=== PATIENT | female | born 1970 | race Caucasian/White ===

== ENCOUNTER 2023-01-09 15:05 | Outpatient (AMB) | payer BC, SELFPAY ==
--- NOTE | 2023-01-09 15:57 | A.SPINEOV_ITS ---
Intake Intake Visit Reasons: Burning sensation mid back Intake Note: Mrs. Coburn is here today c/o a burning sensation in her mid back. Surface To Air Weapons Officer Required: No Assessment & Plan Assessment & Plan (1) Back pain: Code(s): M54.9 - Dorsalgia, unspecified (2) Spondylolisthesis, lumbar region: Code(s): M43.16 - Spondylolisthesis, lumbar region Plan Mrs Coburn is here in follow up today , she is just under a year out from a L4- S1 interbody fusion. Her back is recovered for the most part and she has returned to a lot of her normal activities but is still feeling stiffness in her lower back at night. She also has been getting pain in her midthoracic region more on the left side. Does bother her if she takes a deep breath. I reviewed her x-rays with her today and they look excellent. Her alignment is almost perfectly anatomic. The hardware is in good position. The thoracic x-rays shows some mild degeneration in the midthoracic regions but nothing significant his standing out to me. There is no formal read back yet on these. I encouraged her to continue to be active but to avoid heavy lifting and bending. She will follow-up with us down the road if she has any further issues. Total amount of time spent in this visit was 20 minutes in discussion of sym ptoms, thoracic and lumbar x-ray imaging results and subsequent plan of care Jh Boyd MD,PhD [facility] Orders: Orders XR thoracic spine 2V Today M54.9 - Dorsalgia, unspecified XR lumbar spine 4V min Today M43.16 - Spondylolisthesis, lumbar region Coding Level of Care Code Est Pt Level 3 (73914) Diagnoses Back pain M54.9 Spondylolisthesis, lumbar region M43.16
== END 2023-01-09 16:13 | disposition home or self-care (01) ==
PROVIDERS: PCP Student in an Organized Health Care Education/Training Program; Visit Provider Physician Assistant
DX: M54.9 Dorsalgia, unspecified (principal); M43.16 Spondylolisthesis, lumbar region
CPT/HCPCS: 99213

== ENCOUNTER 2023-01-09 15:05 | Outpatient (REF) | payer BC, SELFPAY ==
--- NOTE | ~2023-01-09 | XR_ITS ---
EXAMINATION: XR THORACOLUMBAR SPINE CLINICAL INFORMATION: Pain COMPARISON: None available. TECHNIQUE: AP and lateral views of thoracic spine FINDINGS: The vertebral alignment is normal. No intrinsic bony abnormality. The disc heights and neural foramina are well maintained. The endplates and posterior elements are normal. No fracture or subluxation. The surrounding prevertebral soft tissues are unremarkable. XR/XR thoracic spine 2V IMPRESSION: No compression fractures or subluxations are identified. The disc spaces are preserved. No endplate changes are seen. The prevertebral soft tissues are normal. The foramina are patent.
--- NOTE | ~2023-01-09 | XR_ITS ---
EXAMINATION: XR LUMBOSACRAL SPINE WITH OBLIQUES CLINICAL INFORMATION: Spondylolisthesis and lumbar region COMPARISON: None available. TECHNIQUE: AP, flexion and extension lateral and lateral views of the lumbar spine. FINDINGS: Patient is status post L4-S1 pedicle screws placement and positioning of spacers at the level of L4-L5 and L5-S1. Hardware in good position and there is no instability seen on flexion and extension views. The rest of vertebral bodies are well aligned and intervertebral discs are preserved except of narrowing cough L1-L2. Soft tissues unremarkable. XR/XR lumbar spine 4V min IMPRESSION: Postsurgical changes with hardware in good position and no instability seen on flexion and extension views.
== END 2023-01-09 15:06 | disposition home or self-care (01) ==
LOC: HO.HOSX 15:05
PROVIDERS: PCP Student in an Organized Health Care Education/Training Program; Visit Provider Physician Assistant
DX: M54.9 Dorsalgia, unspecified (principal); M43.16 Spondylolisthesis, lumbar region
CPT/HCPCS: 72070; 72110

== ENCOUNTER 2023-09-28 13:40 | Outpatient (AMB) | payer BC, SELFPAY ==
--- NOTE | 2023-09-28 13:44 | A.SPINEOV_ITS ---
Intake Visit Reasons: back pain Intake Note: Ms. Coburn is here today c/o back pain that radiates down both legs. Customs Agent Required: No Assessment & Plan Assessment & Plan (1) Left hip pain: Code(s): M25.552 - Pain in left hip Category: Medical (2) Back pain: Code(s): M54.9 - Dorsalgia, unspecified Category: Medical (3) Spondylolisthesis, lumbar region: Code(s): M43.16 - Spondylolisthesis, lumbar region Category: Medical Plan Mrs Coburn is returning to the office today to see us. She has about a year and a half out from her L4-S1 anterior/oblique lumbar interbody fusion. Recently for probably the last month or so she has been having radicular pain down her left leg which is very similar to the severe right leg pain that she had before surgery. She has also been having left hip pain. She is continued to be active and is putting effort in to try to make sure that she keeps herself in shape. These things have helped her quality of life significantly. The recent hip pain and left leg pain though has given her some anxiety because it is so similar to what she had preoperatively. She still has some back pain as well. She was also having trouble with her right foot. She did end up going to a professional engineer who did a release of what sounds like the plantar fascia on her foot. That did improve some of her heel and foot pain but she is still continuing to have some discomfort on the right foot as well. On my examination today, I was unable to reproduce the pain with SI joint provocative maneuvers. Her strength and reflexes are normal. I am going to send her for standing flexion-extension x-rays of her lumbar spine, and left hip x-rays. I would also like to obtain a lumbar MRI to rule out a disc herniation above her previous surgical site. I will see her back after the tests are completed. Total amount of time spent in this visit was 20 minutes in discussion of symptoms, order imaging and subsequent plan of care Jh Boyd MD,PhD [facility] Orders: Orders XR lumbar spine 4V min Today M54.9 - Dorsalgia, unspecified XR hip LT min 2V Today M25.552 - Pain in left hip MR lumbar spine wo con Today M43.16 - Spondylolisthesis, lumbar region, M54.9 - Dorsalgia, unspecified Coding Level of Care Code Est Pt Level 3 (37791) Diagnoses Left hip pain M25.552 Back pain M54.9 Spondylolisthesis, lumbar region M43.16
== END 2023-09-28 14:11 | disposition home or self-care (01) ==
PROVIDERS: PCP Student in an Organized Health Care Education/Training Program; Visit Provider Physician Assistant
DX: M25.552 Pain in left hip (principal); M54.9 Dorsalgia, unspecified; M43.16 Spondylolisthesis, lumbar region
CPT/HCPCS: 99213

== ENCOUNTER 2023-09-28 13:40 | Outpatient (REF) | payer BC, SELFPAY ==
--- NOTE | ~2023-09-28 | XR_ITS ---
EXAMINATION: XR LUMBOSACRAL SPINE WITH OBLIQUES CLINICAL INFORMATION: Dorsalgia COMPARISON: 01/09/2023 TECHNIQUE: AP, both oblique, and lateral views of the lumbar spine. Lateral view of the lumbosacral junction and flexion and extension views. FINDINGS: Patient is status post fusion at the level of L4-L5, L5-S1 with parallel screws is an vertical rods in stable position and there are spacers in this same position as on the prior study, at the level of L4-L5 and L5-S1. There is mild instability on flexion view at the level of L1-L2 with exaggerated anterior listhesis. XR/XR lumbar spine 4V min IMPRESSION: Exaggeration of anterior listhesis at the level of L4-L5 on flexion view. Well-positioned hardware
--- NOTE | ~2023-09-28 | XR_ITS ---
EXAMINATION: XR HIP, LEFT CLINICAL INFORMATION: Pain in the left hip COMPARISON: X-rays of lumbar sacral spine performed same day. TECHNIQUE: Two views of the left hip. FINDINGS: No fracture. Alignment is anatomic. Hip joint space is maintained. Soft tissues are unremarkable. Incidental note made of postsurgical changes in the lumbar sacral junction with posterior instrumentation and disc spacer XR/XR hip LT min 2V IMPRESSION: 1. Normal left hip. 2. Postsurgical changes in the lumbar sacral junction more completely evaluated on x-rays lumbar sacral spine performed same day.
== END 2023-09-28 13:41 | disposition home or self-care (01) ==
LOC: HO.HOSX 13:40
PROVIDERS: PCP Student in an Organized Health Care Education/Training Program; Visit Provider Physician Assistant
DX: M25.552 Pain in left hip (principal); Z98.1 Arthrodesis status; M43.16 Spondylolisthesis, lumbar region
CPT/HCPCS: 72110; 73502

== ENCOUNTER 2024-07-30 13:53 | Outpatient (AMB) | payer OTHER, SELFPAY ==
--- NOTE | 2024-07-30 14:02 | A.SPINEOV_ITS ---
Intake Visit Reasons: Back pain/ surgical discussion Intake Note: Ms. Coburn is here today to discuss surgery. Cafeteria Cook Required: No Assessment & Plan Assessment & Plan (1) Status post lumbar and lumbosacral fusion by anterior technique: Code(s): Z98.1 - Arthrodesis status Category: Surgical Plan: Dear colleague, On 07/30/2024, I saw Abbie Coburn for difficulty walking with the right foot. Patient underwent a lumbar fusion L4-S1 on 03/01/2022 to correct lumbar spondylolisthesis for back pain and pain radiating down her right leg. Preoperatively she already had plantar fasciitis, which was surgically treated postoperatively and to care of the pain on the bottom of her right foot. However, she has been unable to walk normally on her right foot she states that something is pulling at the bottom during the walking cycle. She was told to also see her neurosurgeon to make sure there is nothing wrong with the surgical construct. We reviewed the MRI of the lumbar spine in detail that shows no nerve root compression. A repeat dynamic x-ray today was compared to an x-ray of 09/28/2023 and shows no changes with intact hardware L4-S1 and a resolution of the spondylolisthesis. In conclusion, the patient's symptoms are not originating from the spine. Her history is suggestive for a local foot problem. I discharged her from further follow-up. I spent 30 minutes in his consult for history, review imaging and discussing plan of care. Vu Boyd MD, PhD Sp[facility] Trained Neurosurgeon Director, [facility] Orders: Orders XR lumbar spine 4V min Today Z98.1 - Arthrodesis status Coding Level of Care Code Est Pt Level 3 (33958) Diagnoses Status post lumbar and lumbosacral fusion by anterior technique Z98.1
--- OUTSIDE RECORDS SUMMARY | 2024-07-30 16:36 | XMS_ITS | Clinical Summary ---
[facility] [address] [place] [address] Care Team Providers Care Costing Manager Name Role Phone Darin Kay DO Primary Care Provider [phone] Allergies Active Allergy Reactions Criticality Noted Date Comments Azithromycin 08/02/2016 No reaction documented Hydromorphone 08/18/2022 Erythromycin 2016 Molds & Smuts Itching 04/11/2019 rhinitis Morphine 2016 Nitrofurantoin 2016 Medications Medication Sig Dispensed Refills Start Date End Date Status albuterol (PROVENTIL HFA;VENTOLIN HFA) 108 (90 Base) MCG/ACT inhaler Inhale 2 puffs into the lungs every 4 (four) hours as needed. 0 12/11/2014 Active etodolac (LODINE) 400 MG tablet TAKE 1 TABLET (400 MG TOTAL) BY MOUTH 2 TIMES A DAY 60 tablet 0 12/02/2021 Active acetaminophen (TYLENOL) 325 MG tablet Take 2 tablets (650 mg total) by mouth every 6 (six) hours as needed. 0 Active hydrOXYzine (ATARAX) 25 MG tablet Take 1 tablet (25 mg total) by mouth every night at bedtime as needed. for anxiety 0 06/26/2022 Active traZODone (DESYREL) 50 MG tablet Take 1 tablet (50 mg total) by mouth every night at bedtime. 0 07/12/2022 Active Active Problems Problem Noted Date Diagnosed Date Spinal stenosis of lumbar re gion with neurogenic claudication 12/08/2021 Degenerative disc disease, lumbar 12/08/2021 Spondylolisthesis of lumbar region 12/08/2021 Arthritis of right hip 12/08/2021 Lumbar radiculopathy 12/08/2021 Family History Medical History Relation Name Comments Scoliosis Brother Arthritis Father Diabetes Father Hyperlipidemia Father Rheumatologic disease Father Arthritis Mother Cancer Mother Hypertension Mother Rheumatologic disease Mother Scoliosis Mother Relation Name Status Comments Brother Father Mother Social History Tobacco Use Types Packs/Day Years Used Date Smoking Tobacco: Never Smokeless Tobacco: Never Tobacco Cessation:Counseling Given: Not Answered Alcohol Use Standard Drinks/Week Comments No 0 (1 standard drink = 0.6 oz pur e alcohol) Sex and Gender Information Value Date Recorded Sex Assigned at Female 10/07/2019 4:32 PM EDT Gender Identity Female 10/07/2019 4:32 PM EDT Sexual Orientation Not on file Job Start Date Occupation Industry Not on file Not on file Not on file Last Filed Vital Signs Vital Sign Reading Time Taken Comments Blood Pressure 115/55 08/25/2022 2:40 PM EDT Pulse 75 08/25/2022 2:40 PM EDT Temperature 36.1 ??C (97 ??F) 08/25/2022 2:40 PM EDT Respiratory Rate 11 08/25/2022 2:40 PM EDT Oxygen Saturation 99% 08/25/2022 2:40 PM EDT Inhaled Oxygen Concentration - - Weight 79.4 kg (175 lb) 08/25/2022 11:44 AM EDT Height 160 cm (5' 3 ) 08/25/2022 11:44 AM EDT Body Mass Index 31 08/25/2022 11:44 AM EDT Plan of Treatment Health Maintenance Due Date Last Done Comments Hepatitis B Vaccines (1 of 3 - 3-dose series) 1970 Hepatitis C Screening 1970 Depression Screening 1982 BMI Counseling 1988 Preventative Health Evaluation 1988 DTap / Tdap / Td (1 - Tdap) 1989 Cervical Cancer Screening (Pap Smear) 06/24/1991 Colon Cancer Screening (Colonoscopy) 06/24/2015 Breast Cancer Screening (Mammogram) 2020 Shingrix-Zoster Vaccine (1 o f 2) 2020 COVID-19 Vaccine ( - 2023-2 5 season) 2023 09/30/2021, 09/09/2021 Influenza Vaccine (#1) 2023 Pneumococcal Vaccine Aged Out No long er eligible based on patient's age to complete this topic RSV Ped < 20 months Aged Out No longe r eligible based on patient's age to complete this topic Care Teams Costing Manager Relationship Specialty Start Date End Date Darin Kay DO [address] [place] [address] TERESA Lorenzo PCP - General Family Medicine 11/02/21
--- OUTSIDE RECORDS SUMMARY | 2024-07-30 16:36 | XMS_ITS | Patient Health Record ---
Author Organization [facility] Address [address] [place] [address] Care Team Providers Care Lining Setter Name Role Phone MIKALA URBINA Unavailable [phone] ALLERGIES Allergen (clinical drug ingredient) Drug/Non Drug Allergy documented on EMR Reaction Allergy Type Onset Date Status Azithromycin Unknown Drug Allergy Acti ve hydromorphone Dilaudid Unknown Drug Allergy Act lisa nitrofurantoin, macrocrystals / nitrofurantoin, monohydrate Macrobid Unknown Drug Allergy Active morphine Morphine Unknown Drug Allergy Active REASON FOR REFERRAL No Information MEDICATIONS Medication SIG (Take, Route, Frequency, Duration) Notes Start Date End Date Status Tylenol 325 MG 1 tablet as needed O rally every 4 hrs Active Advil 200 MG 1 tablet with food o r milk as needed Orally Three times a day Active hydrOXYzine HCl 25 MG 1 tablet at bedtim e as needed Orally Once a day Active traZODone HCl 50 MG 1 tablet at bedtime as needed Orally Once a day Active Vitamin D 50 MCG (1999) 1 capsule Ora lly Once a day Active Vitamin B 12 250 MCG 2 lozenges Orally O nce a day Active Magnesium 250 MG 1 tablet with a meal Orally Once a day Active PROBLEMS Problem Type ICD Code Onset Dates Problem Status W/U Status Risk SNOMED Code Notes Problem Other obesity (E66.8) Active confirmed [id number] Problem BMI 32.0-32.9,adul t (Z68.32) Active confirmed [id number] PLAN OF TREATMENT No Information Insurance Providers Payer Name Payer Address Payer Phone Subscriber Number Group Number Insured Name Patient Relationship to Insured Coverage Start Date Coverage End Date [facility] [address] [place] [address] [phone] [id number] Abbie Cardoza Self - patient is the insured MEDICATIONS ADMINISTERED Medication Instructions Date of Administration Dosage Notes [facility] B12 INJECTION 05/23/2022 [id number] MEDICAL (GENERAL) HISTORY Medical History History ICD Code weight gain/loss arthritis Surgical History Surgery Date(Month/Year) spinal Fusion Feb 2022 gallbladder 2011 left ovary removal 2011 Hospitalization History Reason Date(Month/Year) pain, numbness on left side November 2021
--- OUTSIDE RECORDS SUMMARY | 2024-07-30 16:36 | XMS_ITS ---
Author Name [facility] Organization Unknown Encounters Encounter Type Encounter Reason Primary Diagnosis Location Date Ambulatory [facility] 08/23/2022 Care Team Organization Name Specialty Phone Email Start Date End [facility] 03/03/2024
--- OUTSIDE RECORDS SUMMARY | 2024-07-30 16:36 | XMS_ITS | Clinical Summary ---
Author Organization 175 [facility] Address [address] [place] [address] Phone Care Team Providers Care Freight Loader Name Role Phone Elsa Juarez MD Primary Care Provider Allergies Active Allergy Reactions Criticality Noted Date Comments Amoxicillin GI intolerance 04/11/2019 Azithromycin 08/02/2016 No reaction documented Erythromycin GI intolerance,Unknown 12/11/2014 Hydromorphone 04/13/2022 Mold Itching 04/11/2019 rhinitis Morphine Hives,Nausea And Vomiting,Rash Medium 12/11/2014 Nitrofurantoin 2016 Medications ketoconazole (NIZORAL) 2 % shampoo APPLY TO SCALP WHEN SHOWERING. LATHER FOR 5 MINS THEN RINSE Active estradioL (VIVELLE-DOT) 0.05 mg/24 hr 1 patch 2 (two) times a week. Active ibuprofen (ADVIL,MOTRIN) 200 mg tablet Take 1 tablet (200 mg total) by mouth every 6 (six) hours if needed. Active progesterone (PROMETRIUM) 200 mg capsule TAKE 1 CAPSULE BY MOUTH AT BEDTIME FOR 90 DAYS *NEED NEW INS* 02/19/20 24 Active albuterol HFA (PROAIR HFA ; PROVENTIL HFA ; VENTOLIN HFA) 90 mcg/actuation inhaler Inhale 2 puffs by mouth. 03/07/20 23 Active acetaminophen (TYLENOL) 500 mg tablet Take 1 tablet (500 mg total) by mouth if needed. Active Zepbound 5 mg/0.5 mL solution INJECT 0.5 ML (5 MG) UNDER THE SKIN ONCE WEEKLY (0.5ML= 50 UNITS) 2 mL 07/31/19 25 Active tirzepatide, weight loss, (Zepbound) 5 mg/0.5 mL solution Inject 5 mg under the skin every 7 (seven) days for 28 days. Dispense vials. Vial NDC not available in EHR. 2 mL 06/19/19 25 025 Discontinued Zepbound 5 mg/0.5 mL solution INJECT 0.5 ML (5 MG) UNDER THE SKIN ONCE WEEKLY (0.5ML= 50 UNITS) 2 mL 07/10/19 025 Discontinued Hospital, Clinic, or Other Facility Administered Medication Ordered Dose Route Frequency Start Date End Date Status perflutren lipid microsphere (DEFINITY) 1.3 mL in sodium chloride 0.9% 8.7 mL injection 10 mL IV Once in imaging 07/28/2024 07/28/2024 End ed Active Problems Problem Noted Date Diagnosed Date Other chest pain 07/18/2024 Assessment & Plan (07/18/2024 1:49 PM EDT): The patient came for evaluation due to episodes of chest pain. The description of the symptoms is consistent with atypical chest pain. The patient has the following risk factors for coronary artery disease: Obesity. Given the patient's age, gender, description of the symptoms, and risk factors for CAD, the patient has an increased risk for coronary artery disease. As such, will order a stress test for evaluation of the patient's chest pain. Will also order an echocardiogram to rule out any underlying structural heart disease. Orders: Transthoracic echocardiogram (TTE) complete with PRN contrast, bubble, strain, and 3D order panel; Future perflutren lipid microsphere (DEFINITY) 1.3 mL in sodium chloride 0.9% 8.7 mL injection Exercise stress test; Future Palpitations 07/14/2024 Assessment & Plan (07/18/2024 1:49 PM EDT): The patient states that she has been having episodes of palpitations for approximately 1 year. Interestingly, she underwent a Holter monitor in 2016 for evaluation of palpitations. At that time (in 2015) the Holter monitor did not show any arrhythmias but it did show episodes of sinus tachycardia. The patient states that her symptoms have been present for the past year. She describes episodes of palpitations almost every day. Her episodes of palpitations can last from several minutes up to several hours per episode. Her symptoms are more prominent with physical activity, with a longer walk/prolonged standing or when she is going from a sitting to a standing position. She denies any episodes of near syncope or syncope. Of note, the patient is on hormone therapy with progesterone and estradiol. She has been on this therapy for the past year. The patient denies any shortness of breath or lower extremity edema. Recent Holter monitoring done in June 2024 did not show any arrhythmias. It did show episodes of sinus tachycardia. Eventually, her Holter results from June 2024 are similar to her Holter results from 2016. In our office today, her EKG showed a mild sinus tachycardia with a heart rate of 105 bpm. During the physical examination, her heart rate was noted to improve to 90 bpm. The patient's tachycardia may be secondary to inappropriate sinus tachycardia. Nevertheless, we need to rule out reversible causes of sinus tachycardia. As such, we will proceed with laboratory testing with a CBC to rule out anemia. Will order a comprehensive metabolic panel to rule out any electrolyte disorders. Will also order a TSH level to rule out hyperthyroidism. Even though the patient is not having any shortness of breath or lower extremity edema, she is on hormone therapy and therefore we will order a D-dimer. On the other hand, given that her symptoms can also happen with physical activity, will order an exercise stress test to rule out any cardiac ischemia or exercise-induced arrhythmias. Finally, given that her symptoms are sometimes happening with longer walks/prolonged standing or when going from a sitting to a standing position, will order a tilt table to rule out POTS or orthostatic hypotension. In the meantime, the patient was instructed to hydrate appropriately. She tells me that she has not been drinking enough water after starting the Zepbound. She states that she feels dehydrated. I instructed the patient to start drinking 8 to 10 glasses of water every day. Orders: Comprehensive metabolic panel; Future CBC and differential; Future Thyroid stimulating hormone with reflex to free t4 and free t3; Future D-Dimer; Future Transthoracic echocardiogram (TTE) complete with PRN contrast, bubble, strain, and 3D order panel; Future perflutren lipid microsphere (DEFINITY) 1.3 mL in sodium chloride 0.9% 8.7 mL injection Exercise stress test; Future Tilt table; Future Class 1 obesity with body ma ss index (BMI) of 31.0 to 31.9 in adult 06/04/2024 Chronic pain syndrome 04/21/2024 History of lumbar fusion 04/21/2024 Obesity (BMI 30-39.9) 04/21/2024 Other insomnia 04/21/2024 Fibromyalgia 04/21/2024 Resolved Problems Problem Noted Date Diagnosed Date Resolved Date Near syncope 07/18/2024 07/18/2024 Encounters Date Type Department Care Team Description 07/28/2024 12:30 PM EDT Ancillary Procedure [facility] [address] [place] [phone] Palpitations; Other chest pain 07/24/2024 2:15 PM EDT Ancillary Procedure [facility] - [address] [place] [address] Palpitations; Other chest pain 07/21/2024 Telephone [facility] [address] [facility] [address] [place] [address] Opal Childress MD 07/18/2024 1:00 PM EDT Office Visit [facility] [address] [facility] [address] [place] [address] Opal Childress MD Palpitations (Primary Dx); Other chest pain; Obesity (BMI 30-39.9); Pre-diabetes; Tachycardia 07/08/[address] [phone] Elsa Juarez MD Referral 07/01/2024 Telephone [facility] [address] [facility] [address] [place] [address] Opal Childress MD Itchy skin 06/30/2024 10:30 AM EDT Ancillary Procedure [facility] [address] [facility] [address] [place] [phone] Obesity (BMI 30-39.9); Pre-diabetes; Tachycardia 06/10/2024 Telephone Bariatric Surgery [address] [phone] Josemanuel Richards MD Medication Problem (Mounjaro) 06/09/2024 Telephone Adult [address] [phone] Elsa Juarez MD Referral (EXTERNAL CARDIOLOGY ) 06/04/2024 1:30 PM EST Telemedicine Bariatric Surgery [address] [phone] Class 1 obesity with body mass index (BMI) of 31.0 to 31.9 in adult, unspecified obesity type, unspecified whether serious comorbidity present (Primary Dx) 05/30/2024 1:30 PM EST Office Visit Adult [address] [phone] Elsa Juarez MD Obesity (BMI 30-39.9) (Primary Dx); Pre-diabetes; Tachycardia 05/23/2024 Telephone Adult [address] [phone] Elsa Juarez MD Concerning Labs 05/23/2024 Telephone Bariatric Surgery [address] [phone] Josemanuel Richards MD Labs Only 05/20/2024 8:45 AM EST Office Visit Bariatric Surgery [address] [phone] Josemanuel Richards MD Class 1 obesity due to excess calories with body mass index (BMI) of 34.0 to 34.9 in adult, unspecified whether serious comorbidity present (Primary Dx) 05/20/2024 Telephone Bariatric Surgery - [address] [place] [address] Josemanuel Richards MD Medication Problem from Last 3 Months Surgical History Surgery Date Site/Laterality Comments CHOLECYSTECTOMY PROCEDURE:CHOLECYSTECTOMY SPINAL FUSION PROCEDURE:SPINAL FUSION LEFT OOPHORECTOMY PROCEDURE:LEFT OOPHORECTOMY BREAST LUMPECTOMY PROCEDURE:BREAST LUMPECTOMY;COMMENT:2 on right breast, 1 on left breast FOOT FASCIOTOMY 08/25/2022 Right PROCEDURE:FASCIOTOMY FOOT / TOE;COMMENT:Procedure: RIGHT FASCIOTOMY FOOT / TOE; Surgeon: Kaden Manning DPM; Location: [facility]; Service: Podiatry; Laterality: Right; OOPHORECTOMY 11/14/2014 Left PROCEDURE: HISTORICAL OOPHORECTOMY; COMMENT: teratoma CHOLECYSTECTOMY 11/14/2014 PROCEDURE: HISTORICAL CHOLECYSTECTOMY BREAST LUMPECTOMY L 2003,2006. R 2001 PROCEDURE: HISTORICAL BREAST LUMPECTOMY; COMMENT: normal OTHER SURGICAL HISTORY 03/01/2022 PROCEDURE: DC ARTHRODESIS POSTERIOR INTERBODY 1 NTRSP LUMBAR; COMMENT: L4-5, L5-S1 Dr. Deb MCNAMARA Medical History Medical History Date Comments Asthma DX:Asthma Rheumatoid arthritis (CMS/HC C V24, CMS/HCC V28) DX:Rheumatoid arthritis (HCC ) Fibromyalgia DX:Fibromyalgia Asthma DX:Asthma Degenerative disc disease, lumbar DX:Degenerative disc disease, lumbar; COMMENT: L4/L5 Fibromyalgia DX:Fibromyalgia Osteoarthritis 08/02/2016 DX:Osteoarthriti s Polycystic ovary syndrome 08/02/2016 DX:David ycystic ovary syndrome History of abnormal cervical Pap smear 08/02/2016 DX:History of abnormal cervical Pap smear; COMMENT: 02/2015 Family History Medical History Relation Name Comments Scoliosis Brother Arthritis Father hypercholestero lemia Diabetes Father Hyperlipidemia Father Rheumatologic disease Father Breast cancer Maternal Grandmother Arthritis Mother Breast cancer Mother polymyalgia rh eumatic arthritis Cancer Mother Hypertension Mother Rheumatologic disease Mother Scoliosis Mother Relation Name Status Comments Brother Father Maternal Grandmother Mother Social History Tobacco Use Types Packs/Day Years Used Date Smoking Tobacco: Never Smokeless Tobacco: Never Tobacco Cessation:Counseling Given: Not Answered Alcohol Use Standard Drinks/Week Comments No 0 (1 standard drink = 0.6 oz pur e alcohol) Comments No Sex and Gender Information Value Date Recorded Sex Assigned at Not on file Legal Sex Female 7:22 PM EST Gender Identity Not on file Sexual Orientation Not on file Obstetrics History Last Filed Vital Signs Vital Sign Reading Time Taken Comments Blood Pressure 100/70 07/28/2024 1:31 PM EDT Pulse 106 07/18/2024 12:49 PM EDT Temperature 36.1 ??C (97 ??F) 05/30/2024 1:32 PM EST Respiratory Rate 16 05/30/2024 1:32 PM EST Oxygen Saturation 98% 07/18/2024 12:49 PM EDT Inhaled Oxygen Concentration - - Weight 79.4 kg (175 lb) 07/28/2024 1:31 PM EDT Height 162.6 cm (5' 4 ) 07/28/2024 1:31 PM EDT Body Mass Index 30.04 07/28/2024 1:31 PM EDT Plan of Treatment Upcoming Encounters Date Type Department Care Team (Late st Contact Info) Description 09/18/2024 10:00 AM EDT Office Visit Bariatric Surgery [facility] [address] [phone] Josemanuel Richards MD [address] [address] 09/30/2024 1:45 PM EDT Appointment [facility] Xray [address] [place] [phone] 10/06/2024 9:00 AM EDT Office Visit Adult Medicine [address] [phone] Elsa Juarez MD [address] [place] [address] 12/23/2024 9:30 AM EDT Office Visit Adult Medicine [address] [phone] Elsa Juarez MD [address] [place] [address] Health Maintenance Due Date Last Done Comments DTaP,Tdap,and Td Vaccines (1 - Tdap) 1989 Hepatitis B Vaccines (1 of 3 - 19+ 3-dose series) 1989 Pneumococcal Vaccine: 50+ Years (1 of 2 - PCV) 1989 Pneumococcal Vaccine: Pediatrics (0 to 5 Years) and At-Risk Patients (6 to 64 Years) (1 of 2 - PCV) 1989 Zoster Vaccines (1 of 2) 1989 COVID-19 Vaccine (3 - Pfizer risk series) 10/28/2021 09/30/2021, 09/09/2021 Depression Screening 03/24/2022 HIV Screening 03/24/2022 Social Influencers of Health Screening 03/24/2022 Influenza Vaccine (Season Ended) 2024 Cervical Cancer Screening: P ap Smear 04/11/2025 04/11/2022 Breast Cancer Screening 07/01/2025 07/02/19 24, 02/15/2018 Colorectal Cancer Screening: FIT-DNA (Cologuard) 02/07/2026 02/07/2023 Cholesterol Screening (Lipid Panel) 05/20/2029 05/20/2024, 07/24/2023, 12/02/2021 Hepatitis C Screening Completed 07/24/2023 HIB Vaccines Aged Out No longer eligi ble based on patient's age to complete this topic HPV Vaccines Aged Out No longer eligi ble based on patient's age to complete this topic Hepatitis A Vaccines Aged Out No long er eligible based on patient's age to complete this topic IPV Vaccines Aged Out No longer eligi ble based on patient's age to complete this topic MMR Vaccines Aged Out No longer eligi ble based on patient's age to complete this topic Meningococcal ACWY Vaccine Aged Out N o longer eligible based on patient's age to complete this topic Meningococcal B Vaccine Aged Out No l onger eligible based on patient's age to complete this topic RSV Immunization Patients Under 20 months Aged Out No longer eligible b ased on patient's age to complete this topic Varicella Vaccines Aged Out No longer eligible based on patient's age to complete this topic Procedures Procedure Name Priority Date/Time Associated Diagnosis Comments STRESS TEST ONLY EXERCISE Routine 07/24/2024 3:30 PM EDT Palpitations Other chest pain Procedure Note - Renae Trevino, CODY / Opal Childress MD - 07/24/2024 3:30 PM EDTThis note is in progress. ? ? Stress ECG was normal. ? ? Exercise stress test was performed. Exercise capacity was average.Normal blood pressure response. Findings Stress Findings A Reilly protocol stress test was performed. Overall, the patient's exercise capacity was average. The patient reached stage 3. Total stress time was 7 min and 5 sec. The test was stopped because the patient experienced shortness of breath. The patient achieved the target heart rate. The patient's hemodynamic response was adequate for diagnosis. Blood pressure demonstrated a normal response. Heart rate demonstrated a normal response. Onset of symptoms occurred at Stage 3 of the protocol. The patient reported shortness of breath during the stress test. ECG 54-year-old female with past medical history of asthma, fibromyalgia, obesity, palpitations who presents today for exercise stress test to rule out ischemia in the setting of complaints of palpitations with associated lightheadedness and chest discomfort. She is not on any beta-blockers or calcium channel blockers. The ECG shows normal sinus rhythm 95 bpm There were no arrhythmias during stress. There is no significant ST abnormalities during stress. There were no arrhythmias during recovery. The result of the stress ECG was negative for ischemia. CBC WITH AUTO DIFFERENTIAL Routine 07/18/2024 1:47 PM EDT Palpitations D-DIMER Routine 07/18/2024 1:47 PM EDT Palpitations THYROID STIMULATING HORMONE WITH REFLEX TO FREE T4 AND FREE T3 Routine 07/18/2024 1:47 PM EDT Palpitations CBC AND DIFFERENTIAL Routine 07/18/2024 1:47 PM EDT Palpitations COMPREHENSIVE METABOLIC PANEL Routine 07/18/2024 1:47 PM EDT Palpitations ECG 12-LEAD Routine 07/18/2024 1:00 PM EDT Tachycardia CARDIAC HOLTER MONITOR (REPORT GENERATED IN HOUSE) Routine 06/30/2024 10:28 AM EDT Obesity (BMI 30-39.9) Pre-diabetes Tachycardia HEPATIC FUNCTION PANEL Routine 05/20/2024 9:22 AM EST Class 1 obesity due to excess calories with body mass index (BMI) of 34.0 to 34.9 in adult, unspecified whether serious comorbidity present LIPID PANEL WITH REFLEX TO DIRECT LDL Routine 05/20/2024 9:22 AM EST Class 1 obesity due to excess calories with body mass index (BMI) of 34.0 to 34.9 in adult, unspecified whether serious comorbidity present HEMOGLOBIN A1C Routine 05/20/2024 9:22 AM EST Class 1 obesity due to excess calories with body mass index (BMI) of 34.0 to 34.9 in adult, unspecified whether serious comorbidity present HEPATITIS C SCREENING Routine 07/24/2023 MAMMOGRAPHY Routine 07/02/2023 FIT-DNA Routine 02/07/2023 PAP SMEAR Routine 04/11/2022 from Last 3 Months or Most Recently Relevant to Health Maintenance Results * Thyroid stimulating hormone with reflex to free t4 and free t3 (07/18/2024 1:47 PM EDT) Thyroid Stimulating Hormone (TSH) 2.300 0.450 - 4.500 uIU/mL [facility] 1 Blood Venous blood specimen / Unknown 07/18/2024 1:47 PM EDT 07/18/2024 Narrative [facility] 1 - 07/19/2024 6:07 AM EDT Performed at: ??01 - [facility] [address] ??[id number] Sand Buffer: America Cam MD, Phone: ??[phone] us Opal Childress MD LAB BLOOD ORDERABLES F inal Result [facility] * CBC auto differential (07/18/2024 1:47 PM EDT) WBC 9.2 3.4 - 10.8 x10E3/uL [facility] 1 RBC 4.72 3.77 - 5.28 x10E6/uL [facility] 1 Hemoglobin 14.5 11.1 - 15.9 g/dL [facility] 1 Hematocrit 43.9 34.0 - 46.6 % [facility] 1 MCV 93 79 - 97 fL [facility] 1 MCH 30.7 26.6 - 33.0 pg [facility] 1 MCHC 33.0 31.5 - 35.7 g/dL [facility] 1 RDW 13.0 11.7 - 15.4 % [facility] 1 Platelets 358 150 - 450 x10E3/uL [facility] 1 Neutrophils 68 Not Estab. % [facility] 1 Lymphocytes 25 Not Estab. % [facility] 1 Monocytes 6 Not Estab. % [facility] 1 Eosinophils 1 Not Estab. % [facility] 1 Basophils 0 Not Estab. % [facility] 1 Neutrophils Absolute 6.3 1.4 - 7.0 x10E3/uL [facility] 1 Lymphocytes Absolute 2.3 0.7 - 3.1 x10E3/uL [facility] 1 Monocytes Absolute 0.5 0.1 - 0.9 x10E3/uL [facility] 1 Eosinophils Absolute 0.1 0.0 - 0.4 x10E3/uL [facility] 1 Basophils Absolute 0.0 0.0 - 0.2 x10E3/uL [facility] 1 Immature Granulocytes Relative 0 Not Estab. % [facility] 1 Immature Grans (Abs) 0.0 0.0 - 0.1 x10E3/uL [facility] 1 Blood Venous blood specimen / Unknown 07/18/2024 1:47 PM EDT 07/18/2024 Narrative [facility] 1 - 07/19/2024 4:06 AM EDT Performed at: ??01 - [facility] [address] ??[id number] Sand Buffer: America Cam MD, Phone: ??[phone] us Opal Childress MD LAB BLOOD ORDERABLES F inal Result [facility] * D-Dimer (07/18/2024 1:47 PM EDT) Pathologist [facility] D-Dimer 0.39 0.00 - 0.49 mg/L FEU [facility] Comment: According to the assay hand driller's published package insert, a normal (<0.50 mg/L FEU) D-dimer result in conjunction with a non-high clinical probability assessment, excludes deep vein thrombosis (DVT) and pulmonary embolism (PE) with high sensitivity. D-dimer values increase with age and this can make VTE exclusion of an older population difficult. To address this, the [employer], based on best available evidence and recent guidelines, recommends that clinicians use age-adjusted D-dimer thresholds in patients greater than 50 years of age with: a) a low probability of PE who do not meet all Pulmonary Embolism Rule Out Criteria, or b) in those with intermediate probability of PE. The formula for an age-adjusted D-dimer cut-off is age/100 . For example, a 60 year old patient would have an age-adjusted cut-off of 0.60 mg/L FEU and an 80 year old 0.80 mg/L FEU. Blood Venous blood specimen / Unknown 07/18/2024 1:47 PM EDT 07/18/2024 Narrative [facility] 1 - 07/19/2024 3:07 PM EDT Performed at: ??01 - [facility] [address] ??[id number] Sand Buffer: America Cam MD, Phone: ??[phone] Opal Childress MD LAB BLOOD ORDERABLES F inal Result [facility] * (ABNORMAL) Comprehensive metabolic panel (07/18/2024 1:47 PM EDT) [facility] Glucose 82 70 - 99 mg/dL [facility] Blood Urea Nitrogen (BUN) 14 6 - 24 mg/dL [facility] Creatinine 0.87 0.57 - 1.00 mg/dL [facility] 1 eGFR 79 >59 mL/min/1. 73 [facility] 1 BUN/Creatinine Ratio 16 9 - 23 [facility] 1 Sodium 137 134 - 144 mmol/L [facility] Potassium 4.2 3.5 - 5.2 mmol/L [facility] 1 Chloride 101 96 - 106 mmol/L [facility] 1 Carbon Dioxide 21 20 - 29 mmol/L [facility] 1 Calcium 9.6 8.7 - 10.2 mg/dL [facility] Protein Total 7.4 6.0 - 8.5 g/dL [facility] 1 Albumin 4.5 3.8 - 4.9 g/dL [facility] 1 Globulin Total 2.9 1.5 - 4.5 g/dL [facility] 1 Bilirubin Total 0.2 0.0 - 1.2 mg/dL [facility] 1 Alkaline Phosphatase 104 44 - 121 IU/L [facility] 1 Aspartate aminotransferase??(A ST) 20 0 - 40 IU/L [facility] 1 Alanine Aminotransferase (ALT) 33(H) 0 - 32 IU/L [facility] 1 Blood Venous blood specimen / Unknown 07/18/2024 1:47 PM EDT 07/18/2024 Narrative [facility] 1 - 07/19/2024 4:06 AM EDT Performed at: ??01 - [facility] [address] ??[id number] Sand Buffer: America Cam MD, Phone: ??[phone] us Opal Childress MD LAB BLOOD ORDERABLES F inal Result [facility] * ECG 12 lead (07/18/2024 1:00 PM EDT) Ventricular Rate ECG 105 BPM GEMUSE Atrial Rate 105 BPM GEMUSE P-R Interval 120 ms GEMUSE QRS Duration 90 ms GEMUSE Q-T Interval 332 ms GEMUSE QTc 438 ms GEMUSE P Wave Laurel 84 degrees GEMUSE R [place]urel 90 degrees GEMUSE T [place] 32 degrees GEMUSE ECG Interpretation Sinus tachycardia Rightward axis Borderline ECG When compared with ECG of 02-MAR-2022 05:48, No significant change was found Confirmed by OPAL CHILDRESS ([id number]) on 07/18/2024 1:41:38 PM GEMUSE 07/18/2024 1:00 PM EDT 07/18/2024 1:41 PM EDT us Opal Childress MD ECG ORDERABLES Final Result GEMUSE * CARDIAC HOLTER MONITOR (REPORT GENERATED IN HOUSE) (06/30/2024 10:28 AM EDT) Anatomical Region Laterality Modality Cardiac Diagnost ic Narrative 07/03/2024 12:11 PM EDT ?Normal sinus rhythm with some periods of sinus tachycardia. ??No arrhythmias. [facility] [address] [place] [id number] TEL: FAX: Type of Test: 48 Hour Holter Monitor Date of Test: 06/30/2024 Ordering Provider: Elsa Juarez MD Reason for Test: Tachycardia PVCA Manager Community Findings: ?? 1: Normal Sinus Rhythm with episodes of Sinus Tachycardia. 2: Heart rate range was 64-164 BPM with an average of 92 BPM. Total time in Sinus Tachycardia: 10 hrs 42 mins. 3: Rare PACs and one atrial pair. Two PVCs. 4: No significant pause, longest R-R was 1.1 second at 8:47 AM. 5: Diary not returned. Impression: Normal sinus rhythm with periods of sinus tachycardia. ??No documented atrial or ventricular arrhythmias. ??No pauses or bradycardia. us Elsa Juarez MD [facility] CARDIAC SERVICES DC OCEDURES Final Result * (ABNORMAL) Lipid panel with reflex to direct LDL (05/20/2024 9:22 AM EST) Cholesterol 217(H) 0 - 200 mg/dL LAB CHEMISTRY METHOD 05/20/2024 3:39 PM EST [facility] Triglycerides 163(H) 0 - 150 mg/dL LAB CHEMISTRY METHOD 05/20/2024 3:39 PM EST [facility] HDL 57 >=40 mg/dL LAB CHEMISTRY METHOD 05/20/2024 3:39 PM [facility] LDL Calculated 127(H) 0 - 100 mg/dL LAB CHEMISTRY METHOD 05/20/2024 3:39 PM [facility] VLDL Cholesterol Wang 32.6 mg/dL LAB CHEMISTRY METHOD 05/20/2024 3:39 PM [facility] Non HDL Chol. (LDL+VLDL) 160(H) <145 mg/dL LAB CHEMISTRY METHOD 05/20/2024 3:39 PM [facility] Chol/HDL Ratio 3.8 0.0 - 4.4 LAB CHEMISTRY METHOD 05/20/2024 3:39 PM [facility] Blood Venous blood specimen / Unknown Venipuncture / Unknown 05/20/2024 9:22 AM EST 05/20/2024 9:22 AM EST us Josemanuel Richards MD LAB BLOOD ORDERABLES Final R esult [facility] [address] [place] [address], [place] [phone] * Hemoglobin A1c (05/20/2024 9:22 AM EST) Hemoglobin A1C 6.0 <6.5 % LAB CHEMISTRY METHOD 05/21/2024 10:33 AM EST [facility] Mean Bld Glu Estim. 126 mg/dL LAB CHEMISTRY METHOD 05/21/2024 10:33 AM EST [facility] Blood Venous blood specimen / Unknown Venipuncture / Unknown 05/20/2024 9:22 AM EST 05/20/2024 9:22 AM EST us Josemanuel Richards MD LAB BLOOD ORDERABLES Final R esult [facility] [address] [place] [address], [place] [phone] * Hepatic function panel (05/20/2024 9:22 AM EST) [facility] Total Protein 7.0 6.0 - 8.0 g/dL LAB CHEMISTRY METHOD 05/20/2024 3:39 PM EST [facility] Albumin 3.5 3.2 - 5.0 g/dL LAB CHEMISTRY METHOD 05/20/2024 3:39 PM EST [facility] Total Bilirubin 0.4 0.0 - 1.4 mg/dL LAB CHEMISTRY METHOD 05/20/2024 3:39 PM [facility] Bilirubin, Direct 0.1 0.0 - 0.3 mg/dL LAB CHEMISTRY METHOD 05/20/2024 3:39 PM [facility] Bilirubin, Indirect 0.3 0.0 - 1.1 mg/dL LAB CHEMISTRY METHOD 05/20/2024 3:39 PM EST [facility] ALT (SGPT) 52 10 - 60 unit/L LAB CHEMISTRY METHOD 05/20/2024 3:39 PM [facility] AST (SGOT) 25 10 - 42 unit/L LAB CHEMISTRY METHOD 05/20/2024 3:39 PM [facility] Alkaline Phosphatase 96 42 - 121 unit/L LAB CHEMISTRY METHOD 05/20/2024 3:39 PM [facility] Blood Venous blood specimen / Unknown Venipuncture / Unknown 05/20/2024 9:22 AM EST 05/20/2024 9:22 AM EST us Josemanuel Richards MD LAB BLOOD ORDERABLES Final R esult [facility] [address] [place] [address], [place] [phone] * Hepatitis C Screening (07/24/2023) [facility] Hepatitis C Screening Abstrated Historical Provider HEALTH MAINTENANCE Final Result * Mammography (07/02/2023) [facility] Mammogram abstract [facility]sr Anatomical Region Laterality Modality Other Historical Provider HEALTH MAINTENANCE Final Result * FIT-DNA (Cologuard) (02/07/2023) [facility] Colorectal Cancer Screening: FIT-DNA (Cologuard) Negative, Abstracted Historical Provider HEALTH MAINTENANCE Final Result * Pap Smear (04/11/2022) [facility] Pap smear No Interpretatio n, Abstrated Historical Provider HEALTH MAINTENANCE Final Result from Last 3 Months or Most Recently Relevant to Health Maintenance Insurance [employer] Care Teams Freight Loader Relationship Specialty Start Date End Date Elsa Juarez MD [address] [place] [address] [place] [address] PCP - General Internal Medicine 05/15/24
--- OUTSIDE RECORDS SUMMARY | 2024-07-30 16:36 | XMS_ITS | Clinical Summary ---
Author Organization [facility], Address [address] [place] [address] Phone Care Team Providers Care Bioprocessing Manufacturing Technician Name Role Phone Unavailable Primary Care Provider Unavailabl e Allergies Active Allergy Reactions Criticality Noted Date Comments Erythromycin 01/25/2022 Nitrofurantoin 01/25/2022 Morphine 01/25/2022 Medications Acetaminophen 500 MG capsule Take 500 mg by mouth every 6 (six) hours if needed for mild pain Active methocarbamol (ROBAXIN) 750 MG tablet Take 750 mg by mouth in the morning and 750 mg at noon and 750 mg in the evening and 750 mg before bedtime. Active norethindrone-e thinyl estradiol-danae us fumarate (LOESTIN 24 FE) 1-20 MG-MCG(24) per tablet Take 1 tablet by mouth 1 (one) time each day Active pregabalin (LYRICA) 75 MG capsule Take 75 mg by mouth in the morning and 75 mg in the evening. Active traMADol (ULTRAM) 50 MG tablet Take 50 mg by mouth every 6 (six) hours if needed for moderate pain Active Active Problems Problem Noted Date Diagnosed Date Fibromyalgia 01/25/2022 Degeneration of lumbar intervertebral disc 01/25 Social History Tobacco Use Types Packs/Day Years Used Date Smoking Tobacco: Never Assessed Tobacco Cessation:Counseling Given: Not Answered Comments Unknown Sex and Gender Information Value Date Recorded Sex Assigned at Not on file Legal Sex Female 10:07 AM EDT Gender Identity Not on file Sexual Orientation Not on file Last Filed Vital Signs Vital Sign Reading Time Taken Comments Blood Pressure 112/72 02/15/2022 11:09 AM EDT Pulse 80 02/15/2022 11:09 AM EDT Temperature 36.2 ??C (97.1 ??F) 02/15/2022 11:09 AM E DT Respiratory Rate - - Oxygen Saturation - - Inhaled Oxygen Concentration - - Weight - - Height - - Body Mass Index - - Plan of Treatment Health Maintenance Due Date Last Done Comments Breast Cancer Screening 1970 Hepatitis B Vaccine (1 of 3 - 19+ 3-dose series) 06/23 Colorectal Cancer Screening: Annual FOBT 06/24/2019 Colorectal Cancer Screening: Colonoscopy 06/24/2019 Colorectal Cancer Screening: Sigmoidoscopy 06/24/2019 Pneumococcal Vaccine: 50+ Years (1 of 1 - PCV) 021 Influenza Vaccine (Season Ended) 2024 Insurance [facility]
--- OUTSIDE RECORDS SUMMARY | 2024-07-30 16:36 | XMS_ITS | Encounter Summary ---
Author Organization [facility] [place] [address] Care Team Providers Care Plunger Shovel Operator Name Role Phone Elsa Juarez MD Primary Care Provider Reason for Visit * Reason Onset Date Comments Itchy skin 07/01/2024 Encounter Details Date Type Department Care Team (Late st Contact Info) Description 07/01/2024 Telephone [facility] Dr [address] [place] [address] Dave Ruiz MD [address] [place] [address] Dr [address] [place], [place] [phone] Itchy skin Social History Tobacco Use Types Packs/Day Years Used Date Smoking Tobacco: Never Smokeless Tobacco: Never Alcohol Use Standard Drinks/Week Comments No 0 (1 standard drink = 0.6 oz pur e alcohol) Comments No Sex and Gender Information Value Date Recorded Sex Assigned at Not on file Legal Sex Female 7:22 PM EST Gender Identity Not on file Sexual Orientation Not on file documented as of this encounter Progress Notes * Ruthie Kramer RN - 07/02/2024 10:43 AM EDT Noted the below. Thank you for the information. * Araceli Sun - 07/02/2024 10:16 AM EDT This message came to us after hours. Given we placed the monitor, we are the ones to advise on its use. I called and spoke with Abbie, she kept monitor electrodes with original stickers on, in spite of significant skin irritation. I advised patient that she had extra stickers she could have used, but pt was afraid to interrupt recording. Patient will be returning monitor today and was thankful for the call back. This is handled by monitoring pool. They advise patients to change the stickers to the 'sensitive' ones provided during appt, if the irritation persists, please notify Lorena Cardoso or Elizabeth (in monitoring department) for advise in the future. Thank you. * uRthie Kramer RN - 07/01/2024 4:24 PM EDT Abbie is seeing Dr. Bernard on 07/18/24 as a NPV. It appears the ordering provider was her PCP. Should pt contact PCP at this time? * Robe Valle - 07/01/2024 4:18 PM EDT Patient has red and itch skin where her Holter monitor is hooked up. She had picked it up yesterdayand put it on today. She would like to know if she can take off her monitor and put it back on afterwards. If we can give her a call back to discuss this as soon as possible she would appreciate it. documented in this encounter Plan of Treatment Upcoming Encounters Date Type Department Care Team (Late st Contact Info) Description 09/18/2024 10:00 AM EDT Office Visit Bariatric Surgery - [address] [place] [phone] Josemanuel Richards MD [address] [address] 09/30/2024 1:45 PM EDT Appointment [facility] Xray [address] [place] [address] 10/06/2024 9:00 AM EDT Office Visit Adult Medicine - [place] [address] [place] [phone] Elsa Juarez MD [address] [place] [address] 12/23/2024 9:30 AM EDT Office Visit Adult [facility] [address] [place] [phone] Elsa Juarez MD [address] [place] [address] documented as of this encounter Visit Diagnoses Not on filedocumented in this encounter Care Teams Plunger Shovel Operator Relationship Specialty Start Date End Date Elsa Juarez MD [address] [place] [address] PCP - General Internal Medicine 05/15/24 documented as of this encounter
--- OUTSIDE RECORDS SUMMARY | 2024-07-30 16:36 | XMS_ITS | Clinical Summary ---
Author Organization [facility] Address [address] [place] [address] Care Team Providers Care Squaring Machine Operator Name Role Phone Judah Ewing Primary Care Provider [phone] Social History Tobacco Use Types Packs/Day Years Used Date Smoking Tobacco: Never Assessed Comments Unknown Sex and Gender Information Value Date Recorded Sex Assigned at Not on file Legal Sex Female 12:42 PM EDT Gender Identity Not on file Sexual Orientation Not on file Plan of Treatment Health Maintenance Due Date Last Done Comments Hepatitis C Virus Screening 1970 HIV Screening 06/24/1983 DTaP/Tdap/Td Vaccines (1 - Tdap) 1989 Hepatitis B Vaccines (1 of 3 - 19+ 3-dose series) 1989 Pneumococcal Vaccines 50+ (1 of 1 - PCV) 2020 Zoster (Shingles) Vaccine (1 of 2) 2020 COVID-19 Vaccine ( - 2023-2 5 season) 2023 Pneumococcal Vaccine: Pediat pura (0-5 Years) and At-Risk Patients (6 to 49 Years) Aged Out No longer eligible b ased on patient's age to complete this topic Care Teams Squaring Machine Operator Relationship Specialty Start Date End Date Judah Ewing [address] [place] [address] PCP - General
--- OUTSIDE RECORDS SUMMARY | 2024-07-30 16:36 | XMS_ITS | Encounter Summary ---
Author Organization [facility] Address [address] [place] [address] Care Team Providers Care Veterinary Anatomist Name Role Phone Elsa Juarez MD Primary Care Provider Reason for Visit * Imaging (Routine) - Authorized Specialty Diagnoses / Procedures Referred By Contac t Referred To Contact Cardiology Diagnoses Palpitations Other chest pain Procedures Transthoracic echocardiogram (TTE) complete with PRN contrast, bubble, strain, and 3D order panel PA TTE W 2D IMAGE COMPLETE W DOPPLER ECHO & COLOR FLOW DOPPLER ECHO PA HENRIK 2D COMPLETE W/CONTRAST OR W & WO CONTRAST WITH DOPPLER Dave Ruiz MD [address] [place] [address] Dr [address] [place] [address] Phone: tel: fax: [facility] Referral ID Status Reason Start Date Expiration Date V isits Requested Visits Authorized [id number] Authorized 07/18/2024 07/18/2025 1 1 Encounter Details Date Type Department Care Team (Latest Contact Info) Description 07/28/2024 12:30 PM EDT Ancillary Procedure [facility] - [address] [place] [address] Palpitations; Other chest pain Social History Tobacco Use Types Packs/Day Years [...] on file documented as of this encounter Last Filed Vital Signs Vital Sign Reading Time Taken Comments Blood Pressure 100/70 07/28/2024 1:31 PM EDT Pulse - - Temperature - - Respiratory Rate - - Oxygen Saturation - - Inhaled Oxygen Concentration - - Weight 79.4 kg (175 lb) 07/28/2024 1:31 PM EDT Height 162.6 cm (5' 4 ) 07/28/2024 1:31 PM EDT Body Mass Index 30.04 07/28/2024 1:31 PM EDT documented in this encounter Plan of Treatment Upcoming Encounters Date Type Department Care Team (Late st Contact Info) Description 09/18/2024 10:00 AM EDT Office Visit Bariatric Surgery [facility] [address] [phone] Josemanuel Richards MD [address] [address] 09/30/2024 1:45 PM EDT Appointment [facility] Xray [address] [place] [phone] 10/06/2024 9:00 AM EDT Office Visit Adult Medicine [address] [phone] Elsa Juarez MD [address] [place] [address] 12/23/2024 9:30 AM EDT Office Visit Adult Medicine [address] [phone] Elsa Juarez MD [address] [place] [address] Pending Results Name Type Priority Associated Diagnoses Date/Time Transthoracic echocardiogram (TTE) complete with PRN contrast, bubble, strain, and 3D order panel Echocardiography Routine Palpitations Other chest pain 07/28/2024 1:31 PM EDT documented as of this encounter Visit Diagnoses Diagnosis Palpitations Other chest pain documented in this encounter Administered Medications Inactive Administered Medications - up to 3 most recent administrations Medication Order MAR Action Action Date Dose Rate Site perflutren lipid microsphere (DEFINITY) 1.3 mL in sodium chloride 0.9% 8.7 mL injection 10 mL, intravenous, Administer over 10 Minutes, Once in imaging, Starting on Sun07/28/24 at 1332, For 1 dose Given 07/28/2024 1:32 PM EDT 2 mL documented in this encounter Orders Medications Ordered That Quinton ht Not Have Been Administered Count Last Ordered Date First Ordered Date perflutren lipid microsphere (DEFINITY) 1.3 mL in sodium chloride 0.9% 8.7 mL injection 1 07/28/2024 documented in this encounter Care Teams Veterinary Anatomist Relationship Specialty Start Date End Date Elsa Juarez MD [address] [place] [address] PCP - General Internal Medicine 05/15/24 documented as of this encounter
--- OUTSIDE RECORDS SUMMARY | 2024-07-30 16:36 | XMS_ITS | Encounter Summary ---
Author Organization [facility] [place] [address] Care Team Providers Care Carpet Yarn Winder Operator Name Role Phone Elsa Juarez MD Primary Care Provider Encounter Details Date Type Department Care Team (Late st Contact Info) Description 07/21/2024 Telephone [facility] Dr Fuller [address] [place] [address] Dave Ruiz MD [address] [place] [address] Dr [address] [place] [address] Social History Tobacco Use Types Packs/Day Years [...] as of this encounter Progress Notes * Araceli Sun - 07/30/2024 1:19 PM EDT Patient called today, checking status of Tilt table test appt. She asked if someone can call her back wendie. Pt says no PA is needed, her insurance confirmed. Crystal: Can you help with this? Scheduling: Patient would like a FU appt with [facility], says she didn't hear back from us. * Lupe Messer MA - 07/21/2024 11:11 AM EDT I spoke to the pt and advised on results belowa and also advised that the tilt table test order wasplaced so she will just have to wait for the department to call her with the appt, she is grateful for the call * Dave Ruiz MD - 07/21/2024 11:03 AM EDT 1. Laboratory test results were reviewed. Chemistry panel showed normal renal function and normal serum electrolytes. One of her liver enzymes is at the upper limit of normal but is actually less than what it was 2 months ago. Would recommend for the patient to follow-up with her PCP regarding this. D-dimer was normal. TSH level was normal. CBC was normal. 2. The order for the tilt study was already placed. She will receive a call once they are ready to book her appointment. * Araceli Sun - 07/21/2024 10:52 AM EDT Patient called today, looking for recent lab results. Please advise. Patient also asked about Tilt table test, is hoping to get scheduled sooner than later. Thank you. documented in this encounter Plan of Treatment Upcoming Encounters Date Type Department Care Team (Late st Contact Info) Description 09/18/2024 10:00 AM EDT Office Visit Bariatric Surgery - [place] [address] [phone] Josemanuel Richards MD 175 [facility] [address] [place] [address] 09/30/2024 1:45 PM EDT Appointment [facility] Xray [address] [place] [phone] 10/06/2024 9:00 AM EDT Office Visit Adult Medicine - [place] [address] [place] [phone] Elsa Juarez MD [address] [place] [address] 12/23/2024 9:30 AM EDT Office Visit Adult [address] [phone] Elsa Juarez MD [address] [place] [address] documented as of this encounter Visit Diagnoses Not on filedocumented in this encounter Care Teams Carpet Yarn Winder Operator Relationship Specialty Start Date End Date Elsa Juarez MD [address] [place] [address] PCP - General Internal Medicine 05/15/24 documented as of this encounter
== END 2024-07-30 14:57 | disposition home or self-care (01) ==
LOC: HO.HNS 13:53
PROVIDERS: PCP Student in an Organized Health Care Education/Training Program; Visit Provider Neurological Surgery
DX: Z98.1 Arthrodesis status (principal)
CPT/HCPCS: 99213

== ENCOUNTER 2024-07-30 13:53 | Outpatient (REF) | payer OTHER, SELFPAY ==
--- NOTE | ~2024-07-30 | XR_ITS ---
EXAMINATION: XR LUMBOSACRAL SPINE CLINICAL INFORMATION: Z98.1 - Arthrodesis status COMPARISON: 09/28/2023. TECHNIQUE: 4 views of the lumbar spine, inclusive of flexion and extension views, were obtained. FINDINGS: There is no scoliosis. There is normal lordosis. There has been posterior instrumented fusion of L4-S1 with transpedicular screws, posterior connecting rods, and intervening disc prostheses. The hardware appears intact, well seated, without periprosthetic abnormality. There are no fractures or compression deformities. No suspicious bone lesions. There is moderate disc degeneration at L1 to, and mild degeneration at L2-3 and L3-4. There is a 3 mm anterolisthesis L4 on L5, which appears stable. There is a 3 mm retrolisthesis of L1 on L2, also stable. No additional subluxations. On flexion exam, there is reduction of the L1-2 retrolisthesis to 0 mm. No change in the alignment otherwise. On extension exam, alignment is similar to the neutral position. No definite evidence of instability. XR/XR lumbar spine 4V min IMPRESSION: 1. No acute bony abnormalities. 2. Posterior instrumented fusion of L4-S1 without complication. 3. There is a 3 mm subluxation reduction at L1-L2 on flexion exam, suggesting mild instability. No additional evidence of instability Electronically signed by: Quintin Kearney MD 07/31/2024 01:35 PM EDT
--- OUTSIDE RECORDS SUMMARY | 2024-07-30 17:22 | XMS_ITS | Encounter Summary ---
Author Organization [facility] [place] [address] Care Team Providers Care Client Care Representative Name Role Phone Elsa Juarez MD Primary Care Provider Reason for Visit * Reason Onset Date Comments Itchy skin 07/01/2024 Encounter Details Date Type Department Care Team (Late st Contact Info) Description 07/01/2024 Telephone [facility] Dr Fuller [address] [place] [address] Dave Ruiz MD [address] [place] [address] Dr [address] [place], [place] [phone] Itchy skin Social History Tobacco Use Types [...] advise in the future. Thank you. * Ruthie Kramer RN - 07/01/2024 4:24 PM EDT [...] AM EDT Office Visit Bariatric Surgery - [address] [place] [phone] Josemanuel Richards MD [address] [address] 09/30/2024 1:45 PM EDT Appointment [facility] Xray [address] [place] [address] 10/06/2024 9:00 AM EDT Office Visit Adult Medicine - [place] [address] [place] [phone] Elsa Juarez MD [address] [place] [address] 12/23/2024 9:30 AM EDT Office Visit Adult [facility] [address] [place] [phone] Elsa Juarez MD [address] [place] [address] documented as of this encounter Visit Diagnoses Not on filedocumented in this encounter Care Teams Client Care Representative Relationship Specialty Start Date End Date Elsa Juarez MD [address] [place] [address] PCP - General Internal Medicine 05/15/24 documented as of this encounter
--- OUTSIDE RECORDS SUMMARY | 2024-07-30 17:22 | XMS_ITS | Clinical Summary ---
Author Organization [facility] Address [address] [place] [address] Care Team Providers Care Rv Parts And Service Director Name Role Phone Darin Kay DO Primary Care Provider [phone] Allergies Active Allergy Reactions Criticality Noted Date [...] age to complete this topic Care Teams Rv Parts And Service Director Relationship Specialty Start Date End Date Darin Kya DO [address] [place] [address] TERESA Lorenzo PCP - General Family Medicine 11/02/21
--- OUTSIDE RECORDS SUMMARY | 2024-07-30 17:22 | XMS_ITS | Encounter Summary ---
Author Organization [facility] Address [address] [place] [address] Care Team Providers Care Tank Systems Maintainer Name Role Phone Elsa Juarez MD Primary Care Provider Reason for Visit * Imaging (Routine) - Authorized Specialty Diagnoses / Procedures Referred By Contac t Referred To Contact Cardiology Diagnoses Palpitations Other chest pain Procedures Transthoracic echocardiogram (TTE) complete with PRN contrast, bubble, strain, and 3D order panel MS TTE W 2D IMAGE COMPLETE W DOPPLER ECHO & COLOR FLOW DOPPLER ECHO MS HENRIK 2D COMPLETE W/CONTRAST OR W & WO CONTRAST WITH DOPPLER Dave Ruiz MD [address] [place] [address] Dr [address] [place] [address] Phone: tel: fax: [facility] Referral ID Status Reason Start Date Expiration Date V isits Requested Visits Authorized [id number] Authorized 07/18/2024 07/18/2025 1 1 Encounter Details Date Type Department Care Team (Latest Contact Info) Description 07/28/2024 12:30 PM EDT Ancillary Procedure [facility] - [address] [place] [address] Palpitations; Other chest pain Social History Tobacco [...] 10:00 AM EDT Office Visit Bariatric Surgery [facility] [address] [phone] Josemanuel Richards MD [address] [address] 09/30/2024 1:45 PM EDT Appointment [facility] Xray [address] [place] [phone] 10/06/2024 9:00 AM EDT Office Visit Adult Medicine [address] [phone] Elsa Juarez MD [address] [place] [address] 12/23/2024 9:30 AM EDT Office Visit Adult Medicine [address] [phone] Elsa Juarez MD [address] [place] [address] Pending Results Name Type Priority Associated Diagnoses [...] 07/28/2024 documented in this encounter Care Teams Tank Systems Maintainer Relationship Specialty Start Date End Date Elsa Juarez MD [address] [place] [address] PCP - General Internal Medicine 05/15/24 documented as of this encounter
--- OUTSIDE RECORDS SUMMARY | 2024-07-30 17:22 | XMS_ITS | Clinical Summary ---
Author Organization 175 [facility] Address [address] [place] [address] Phone Care Team Providers Care Script Reader Name Role Phone Elsa Juarez MD Primary [...] Description 07/28/2024 12:30 PM EDT Ancillary Procedure [facility] [address] [place] [phone] Palpitations; Other chest pain 07/24/2024 2:15 PM EDT Ancillary Procedure [facility] [address] [place] [address] Palpitations; Other chest pain 07/21/2024 [address]phone [facility] [address] [facility] [address] [place] [address] Opal Childress MD 07/18/2024 1:00 PM EDT Office Visit [facility] [address] [place] [address] Opal Childress MD Palpitations (Primary Dx); Other chest pain; Obesity (BMI 30-39.9); Pre-diabetes; Tachycardia 07/08/[address] [phone] Elsa Juarez MD Referral 07/01/2024 [address] [facility] [address] [facility] [address] [place] [address] Opal Childress MD Itchy skin 06/30/2024 10:30 AM EDT Ancillary Procedure [facility] [address] [facility] [address] [place] [phone] Obesity (BMI 30-39.9); Pre-diabetes; Tachycardia 06/10/2024 Telephone Bariatric Surgery [address] [address] Josemanuel Richards MD Medication Problem (Mounjaro) 06/09/2024 Telephone Adult [address] [phone] Elsa Juarez MD Referral (EXTERNAL CARDIOLOGY ) 06/04/2024 1:30 PM EST Telemedicine Bariatric Surgery [address] [phone] Class 1 obesity with body mass index (BMI) of 31.0 to 31.9 in adult, unspecified obesity type, unspecified whether serious comorbidity present (Primary Dx) 05/30/2024 1:30 PM EST Office Visit Adult [address] [phone] Elsa Juarez MD Obesity (BMI 30-39.9) (Primary Dx); Pre-diabetes; Tachycardia 05/23/2024 Telephone Adult [address] [phone] Elsa Juarez MD Concerning Labs 05/23/2024 Telephone Bariatric Surgery [address] [phone] Josemanuel Richards MD Labs Only 05/20/2024 8:45 AM EST Office Visit Bariatric Surgery [address] [address] Josemanuel Richards MD Class 1 obesity due to excess calories with body mass index (BMI) of 34.0 to 34.9 in adult, unspecified whether serious comorbidity present (Primary Dx) 05/20/2024 Telephone Bariatric Surgery - [address] [place] [address] Josemanuel Richards MD Medication Problem from Last 3 Months Surgical History Surgery Date Site/Laterality Comments CHOLECYSTECTOMY PROCEDURE:CHOLECYSTECTOMY SPINAL FUSION PROCEDURE:SPINAL FUSION LEFT OOPHORECTOMY PROCEDURE:LEFT OOPHORECTOMY BREAST LUMPECTOMY PROCEDURE:BREAST LUMPECTOMY;COMMENT:2 on right breast, 1 on left breast FOOT FASCIOTOMY 08/25/2022 Right PROCEDURE:FASCIOTOMY FOOT / TOE;COMMENT:Procedure: RIGHT FASCIOTOMY FOOT / TOE; Surgeon: Kaden Manning DPM; Location: [facility]; Service: Podiatry; Laterality: Right; OOPHORECTOMY 11/14/2014 Left PROCEDURE: HISTORICAL OOPHORECTOMY; COMMENT: teratoma CHOLECYSTECTOMY 11/14/2014 PROCEDURE: HISTORICAL CHOLECYSTECTOMY BREAST LUMPECTOMY L 2003,2006. R 2001 PROCEDURE: HISTORICAL BREAST LUMPECTOMY; COMMENT: normal OTHER SURGICAL HISTORY 03/01/2022 PROCEDURE: [place] ARTHRODESIS POSTERIOR INTERBODY 1 NTRSP LUMBAR; COMMENT: [...] 10:00 AM EDT Office Visit Bariatric Surgery [facility] [address] [phone] Josemanuel Richards MD [address] [address] 09/30/2024 1:45 PM EDT Appointment [facility] Xray [address] [place] [phone] 10/06/2024 9:00 AM EDT Office Visit Adult Medicine [address] [phone] Elsa Juarez MD [address] [place] [address] 12/23/2024 9:30 AM EDT Office Visit Adult Medicine [address] [phone] Elsa Juarez MD [address] [place] [address] Health Maintenance Due Date Last Done Comments [...] AM EDT Performed at: ??01 - [facility] [address] ??[id number] Inventory Control Clerk: America Cam MD, Phone: ??[phone] us Opal Childress MD LAB BLOOD ORDERABLES [...] AM EDT Performed at: ??01 - [facility] [address] ??[id number] Inventory Control Clerk: America Cam MD, Phone: ??[phone] us Opal Childress MD LAB BLOOD ORDERABLES F inal Result [facility] 1 * D-Dimer (07/18/2024 1:47 PM EDT) Pathologist [facility] D-Dimer 0.39 0.00 - 0.49 mg/L FEU [facility] 1 Comment: According to the assay drain tile press operator's published package insert, a normal (<0.50 mg/L FEU) D-dimer result in conjunction with a non-high clinical probability assessment, excludes deep vein thrombosis (DVT) and pulmonary embolism (PE) with high sensitivity. D-dimer values increase with age and this can make VTE exclusion of an older population difficult. To address this, the [employer], based on best available [...] PM EDT Performed at: ??01 - [facility] [address] ??[id number] Inventory Control Clerk: America Cam MD, Phone: ??[phone] Opal Childress MD LAB BLOOD ORDERABLES F inal Result [facility] 1 * (ABNORMAL) Comprehensive metabolic panel (07/18/2024 1:47 PM EDT) [facility] Glucose 82 70 - 99 mg/dL [facility] [...] AM EDT Performed at: ??01 - [facility] [address] ??[id number] Inventory Control Clerk: America Cam MD, Phone: ??[phone] us Opal Childress MD LAB BLOOD ORDERABLES F inal Result [facility] 1 * ECG 12 lead (07/18/2024 1:00 PM EDT) Ventricular Rate ECG 105 BPM GEMUSE Atrial Rate 105 BPM GEMUSE P-R Interval 120 ms GEMUSE QRS Duration 90 ms GEMUSE Q-T Interval 332 ms GEMUSE QTc 438 ms GEMUSE P Wave Guion 84 degrees GEMUSE R Guion 90 degrees GEMUSE T Guion 32 degrees GEMUSE ECG Interpretation Sinus tachycardia [...] some periods of sinus tachycardia. ??No arrhythmias. [facility] DIAGNOSTIC [facility]ING DEPARTMENT [address] [place] [address] TEL: FAX: Type of Test: 48 Hour Holter Monitor Date of Test: 06/30/2024 Ordering Provider: Elsa Juarez MD Reason for Test: Tachycardia PVCA Manager Hydraulic Findings: ?? 1: Normal Sinus Rhythm with [...] us Elsa Juarez MD [facility] OCEDURES Final Result * (ABNORMAL) Lipid panel with reflex to direct LDL (05/20/2024 9:22 AM EST) Cholesterol 217(H) 0 - 200 mg/dL LAB CHEMISTRY METHOD 05/20/2024 3:39 PM EST [facility] Triglycerides 163(H) 0 - 150 mg/dL LAB CHEMISTRY METHOD 05/20/2024 3:39 PM EST [facility] HDL 57 >=40 mg/dL LAB CHEMISTRY METHOD 05/20/2024 3:39 PM [facility] LDL Calculated 127(H) 0 - 100 mg/dL LAB CHEMISTRY METHOD 05/20/2024 3:39 PM [facility] VLDL Cholesterol Wang 32.6 mg/dL LAB CHEMISTRY METHOD 05/20/2024 3:39 PM [facility] Non HDL Chol. (LDL+VLDL) 160(H) <145 mg/dL LAB CHEMISTRY METHOD 05/20/2024 3:39 PM [facility] Chol/HDL Ratio 3.8 0.0 - 4.4 LAB CHEMISTRY METHOD 05/20/2024 3:39 PM [facility] Blood Venous blood specimen / Unknown Venipuncture / Unknown 05/20/2024 9:22 AM EST 05/20/2024 9:22 AM EST us Josemanuel Richards MD LAB BLOOD ORDERABLES Final R esult [facility] [address] [place] [address], [place] [phone] * Hemoglobin A1c (05/20/2024 9:22 AM EST) Hemoglobin A1C 6.0 <6.5 % LAB CHEMISTRY METHOD 05/21/2024 10:33 AM EST [facility] Mean Bld Glu Estim. 126 mg/dL LAB CHEMISTRY METHOD 05/21/2024 10:33 AM EST [facility] Blood Venous blood specimen / Unknown Venipuncture / Unknown 05/20/2024 9:22 AM EST 05/20/2024 9:22 AM EST us Josemanuel Richards MD LAB BLOOD ORDERABLES Final R esult [facility] [address] [place] [address], [place] [phone] * Hepatic function panel (05/20/2024 9:22 AM EST) [facility] Total Protein 7.0 6.0 - 8.0 g/dL LAB CHEMISTRY METHOD 05/20/2024 3:39 PM EST [facility] Albumin 3.5 3.2 - 5.0 g/dL LAB CHEMISTRY METHOD 05/20/2024 3:39 PM EST [facility] Total Bilirubin 0.4 0.0 - 1.4 mg/dL LAB CHEMISTRY METHOD 05/20/2024 3:39 PM [facility] Bilirubin, Direct 0.1 0.0 - 0.3 mg/dL LAB CHEMISTRY METHOD 05/20/2024 3:39 PM [facility] Bilirubin, Indirect 0.3 0.0 - 1.1 mg/dL LAB CHEMISTRY METHOD 05/20/2024 3:39 PM EST [facility] ALT (SGPT) 52 10 - 60 unit/L LAB CHEMISTRY METHOD 05/20/2024 3:39 PM [facility] AST (SGOT) 25 10 - 42 unit/L LAB CHEMISTRY METHOD 05/20/2024 3:39 PM [facility] Alkaline Phosphatase 96 42 - 121 unit/L LAB CHEMISTRY METHOD 05/20/2024 3:39 PM [facility] Blood Venous blood specimen / Unknown Venipuncture / Unknown 05/20/2024 9:22 AM EST 05/20/2024 9:22 AM EST us Josemanuel Richards MD LAB BLOOD ORDERABLES Final R esult [facility] [address] [place] [address], [place] [phone] * Hepatitis C Screening (07/24/2023) [facility] Hepatitis C Screening Abstrated Historical Provider HEALTH MAINTENANCE Final Result * Mammography (07/02/2023) [facility] Mammogram abstract [facility] /sr Anatomical Region Laterality Modality Other Historical Provider HEALTH MAINTENANCE Final Result * FIT-DNA (Cologuard) (02/07/2023) [facility] Colorectal Cancer Screening: FIT-DNA (Cologuard) Negative, Abstracted Historical Provider HEALTH MAINTENANCE Final Result * Pap Smear (04/11/2022) [facility] Pap smear No Interpretatio n, Abstrated Historical Provider HEALTH MAINTENANCE Final Result from Last 3 Months or Most Recently Relevant to Health Maintenance Insurance [employer] Care Teams Script Reader Relationship Specialty Start Date End Date Elsa Juarez MD [address] [place] [address] [place] [address] PCP - General Internal Medicine 05/15/24
--- OUTSIDE RECORDS SUMMARY | 2024-07-30 17:22 | XMS_ITS | Clinical Summary ---
Author Organization [facility], Address [address] [place] [address] Phone Care Team Providers Care Fingerprint Technician Name Role Phone Unavailable Primary Care [...] 021 Influenza Vaccine (Season Ended) 2024 Insurance [facility]
--- OUTSIDE RECORDS SUMMARY | 2024-07-30 17:22 | XMS_ITS | Clinical Summary ---
Author Organization [facility] Address [address] [place] [address] Care Team Providers Care Customs And Immigration Officer Name Role Phone Judah Ewing Primary Care Provider [phone] Social History Tobacco Use Types Packs/Day Years [...] age to complete this topic Care Teams Customs And Immigration Officer Relationship Specialty Start Date End Date Judah Ewing [address] [place] [address] PCP - General
--- OUTSIDE RECORDS SUMMARY | 2024-07-30 17:22 | XMS_ITS | Encounter Summary ---
Author Organization [facility] [place] [address] Care Team Providers Care Auction Block Clerk Name Role Phone Elsa Juarez MD Primary Care Provider Encounter Details Date Type Department Care Team (Late st Contact Info) Description 07/21/2024 Telephone [facility] [address] [place] [address] Dave Ruiz MD [address] [place] [address] [address] [place] [address] Social History Tobacco Use Types Packs/Day Years [...] AM EDT Office Visit Bariatric Surgery - [place] [address] [phone] Josemanuel Richards MD 175 [facility] [address] [place] [address] 09/30/2024 1:45 PM EDT Appointment [facility] Xray [address] [place] [phone] 10/06/2024 9:00 AM EDT Office Visit Adult Medicine - [place] [address] [place] [phone] Elsa Juarez MD [address] [place] [address] 12/23/2024 9:30 AM EDT Office Visit Adult [address] [phone] Elsa Juarez MD [address] [place] [address] documented as of this encounter Visit Diagnoses Not on filedocumented in this encounter Care Teams Auction Block Clerk Relationship Specialty Start Date End Date Elsa Juarez MD [address] [place] [address] PCP - General Internal Medicine 05/15/24 documented as of this encounter
== END 2024-07-30 13:54 | disposition home or self-care (01) ==
LOC: HO.HOSX 13:53
PROVIDERS: PCP Student in an Organized Health Care Education/Training Program; Visit Provider Neurological Surgery
DX: Z98.1 Arthrodesis status (principal)
CPT/HCPCS: 72110

== ENCOUNTER → 2024-07-30 14:41 | Outpatient (BNV) | payer OTHER, SELFPAY | PROVIDERS: PCP Student in an Organized Health Care Education/Training Program; Visit Provider Radiology Diagnostic Radiology | DX: Z98.1 Arthrodesis status (principal) | CPT/HCPCS: 72110 ==

== ENCOUNTER 2025-02-20 08:42 | Outpatient (REF) | payer OTHER, SELFPAY ==
--- NOTE | ~2025-02-20 | XR_ITS ---
EXAMINATION: XR LUMBOSACRAL SPINE CLINICAL INFORMATION: M43.16 - Spondylolisthesis, lumbar region COMPARISON: July 30, 2024 TECHNIQUE: Lateral views in neutral, flexion and extension position. AP view. FINDINGS: 1 mm retrolisthesis L1 vascular in neutral position which reduces in flexion and persist in extension. Status post posterior fusion L4 S1 and intervertebral disc spacer placement. Intact hardware. No acute cortical disruption. No lytic or blastic lesions. Vascular clips in the right upper quadrant abdomen. Liver shadow projects below the rib cage and vascular calcifications.. XR/XR lumbar spine 4V min IMPRESSION: Grade 1 retrolisthesis at L1-2 likely unstable. Electronically signed by: Rashel Paulson MD 02/20/2025 09:17 AM VIANNEY LAYTON
--- OUTSIDE RECORDS SUMMARY | 2025-02-20 09:20 | XMS_ITS | Encounter Summary ---
Author Organization [employer] [facility] Address [address] [place] [address] Phone Care Team Providers Care Independent Trader Name Role Phone Pcp, Not Required Primary Care Provider Unavaila ble Encounter Details Date Type Department Care Team (Late st Contact Info) Description 12/21/2021 Ancillary Orders [facility] [address] [place] [phone] Victor Manuel Root MD [address] [place] [address] [email or web address] Social History Tobacco Use Types Packs/Day Years Used Date Smoking Tobacco: Never Assessed Comments Unknown Sex and Gender Information Value Date Recorded Sex Assigned at Female 12/16/2021 8:39 AM EDT Legal Sex Female 8:29 AM EDT Gender Identity Female 12/16/2021 8:39 AM EDT Sexual Orientation Straight 12/16/2021 8: 39 AM EDT documented as of this encounter Plan of Treatment Not on file documented as of this encounter Results * MRI Spine (Bone) Outside (No Interpretation) (11/15/2021 12:00 AM EDT) Narrative [facility] - 12/16/2021 12:39 PM EDT This study is for PACS storage only and not for interpretation. us Victor Manuel Root MD IMG OUTSIDE IMAGING W/OUT INTER PRETATION Edited Result - Final [facility] documented in this encounter Visit Diagnoses Not on filedocumented in this encounter Care Teams Independent Trader Relationship Specialty Start Date End Date Pcp, Not Required [address] [place] [phone] PCP - General 12/16/21 documented as of this encounter Additional Source Comments The information contained in this document represents components of the legal health record. It is not the complete legal health record.[facility]
--- OUTSIDE RECORDS SUMMARY | 2025-02-20 09:20 | XMS_ITS | Clinical Summary ---
Author Organization [facility] Address [facility] [address] [address] Phone Care Team Providers Care Carpenter Assistant Name Role Phone Pcp, Not Required Primary Care Provider Unavaila ble Social History Tobacco Use Types Packs/Day Years Used Date Smoking Tobacco: Never Assessed Education Answer Date Recorded Are you interested in more education? Not on bert e 08/12/2022 Are you concerned about learning? Not on file 08/12/2022 No 08/12/2022 No 08/12/2022 Digital Access Answer Date Recorded No 09/10/2022 No 09/10/2022 No 09/10/2022 Reliable internet access at home? Not on file 09/10/2022 Device with a working camera? Not on file Comments Unknown Sex and Gender Information Value Date Recorded Sex Assigned at Female 12/16/2021 8:39 AM EDT Legal Sex Female 8:29 AM EDT Gender Identity Female 12/16/2021 8:39 AM EDT Sexual Orientation Straight 12/16/2021 8: 39 AM EDT Plan of Treatment Health Maintenance Due Date Last Done Comments Adult Td,Tdap Booster 1970 DEPRESSION SCREENING 1982 SMOKING Hx and SMOKELESS TOBACCO SCREENING 06/24/1983 HEPATITIS C SCREENING 1988 HIV ONE-TIME SCREENING (18-6 5 YEARS) 1988 PAP SMEAR 06/24/1991 MAMMOGRAM 2010 COLOGUARD 06/24/2015 COLONOSCOPY 06/24/2015 COLORECTAL CANCER SCREENING 06/24/2015 FIT TEST 06/24/2015 FOBT 06/24/2015 SIGMOIDOSCOPY 06/24/2015 VIRTUAL COLONOSCOPY 06/24/2015 PNEUMOCOCCAL VACCINES (50+ years) (1 of 1 - PCV) 2020 ZOSTER VACCINES (1 of 2) 2020 INFLUENZA VACCINE (#1) 2024 COVID-19 VACCINE (3 - 2024-2 6 season) 2024 09/30/2021, 09/09/2021 LIPID PANEL 12/02/2026 12/02/2021 RSV VACCINE (1 - 1-dose 75+ series) 2045 HEPATITIS A VACCINES Aged Out No long er eligible based on patient's age to complete this topic HIB VACCINES Aged Out No longer eligi ble based on patient's age to complete this topic MENINGOCOCCAL VACCINES (ACWY) Aged Out No longer eligible based on patient's age to complete this topic MENINGOCOCCAL VACCINES (B) Aged Out N o longer eligible based on patient's age to complete this topic Medical Devices Not on file [facility] Care Teams Carpenter Assistant Relationship Specialty Start Date End Date Pcp, Not Required [address] [place] [address] PCP - General 12/16/21 Additional Source Comments The information contained in this document represents components of the legal health record. It is not the complete legal health record.[email or web address]
--- OUTSIDE RECORDS SUMMARY | 2025-02-20 09:20 | XMS_ITS | Clinical Summary ---
Author Organization Formerly [facility] Address [address] [place] [address] Care Team Providers Care Handbag Frames Inspector Name Role Phone Elsa Rose MD Primary Care Provider Marge vailable Allergies Active Allergy Reactions Criticality Noted Date Comments Erythromycin Other (See Comments) Low 11/18/2024 Hydromorphone Delirium/Confusion/P syc hosis,Hives Medium 04/13/2022 Molds & Smuts Itching Low 04/11/2019 rhinitis Morphine Other (See Comments) Low 11/18/2024 Nitrofurantoin Hives,Nausea And Vomiting,Rash/Dermatiti s,Unknown/Patient and Family Unable to Define Medium 12/11/2014 Sulfamethoxazole-Trimethopri m Rash/Dermatitis Low 11/18/2024 Medications Multiple Vitamin (MULTIVITAMIN ADULT PO) 0 Refills, Maintenance, 08/11/24 10:34:00 AM EDT, Partial fill upon patient request if the prescription is for a schedule II opioid drug. 5 Active cyanocobalamin (VITAMIN B-12) 1000 MCG tablet Take 1,000 mcg by mouth. Active rosuvastatin (CRESTOR) 5 MG tablet Take 5 mg by mouth. 5 Active estradiol (VIVELLE-DOT) 0.1 MG/24HR external patch APPLY 1 PATCH BY TRANSDERMAL ROUTE TWICE WEEKLY 5 Active Active Problems No known active problems Encounters Date Type Department Care Team Description 01/14/2025 10:00 AM EDT [facility] Visit [facility] [address] [phone] Elias Blake MD Sussman, Emily H, Au.D Dizziness and giddiness (Primary Dx); Sensory hearing loss, bilateral 12/25/2024 1:00 PM EDT Procedure visit [facility] Pul[facility] [address] [address] Bert Rowland MD Sleep apnea, unspecified type (Primary Dx) 12/25/2024 Travel from Last 3 Months Family History Medical History Relation Name Comments Diabetes Father Luis Autoimmune disease Mother Lee Ann Breast cancer Mother Lee Ann Relation Name Status Comments Father Luis Alive Mother Lee Ann Social History Tobacco Use Types Packs/Day Years Used Date Smoking Tobacco: Never Smokeless Tobacco: Never Alcohol Use Standard Drinks/Week Comments Never 0 (1 standard drink = 0.6 oz pur e alcohol) Comments Unknown Sex and Gender Information Value Date Recorded Sex Assigned at Female 09/26/2024 8:52 AM EDT Legal Sex Female 12:42 PM EDT Gender Identity Female 09/26/2024 8:52 AM EDT Sexual Orientation Choose not to disclose 2024 8:52 AM EDT Last Filed Vital Signs Vital Sign Reading Time Taken Comments Blood Pressure 102/60 11/18/2024 2:12 PM EDT Pulse 86 11/18/2024 2:12 PM EDT Temperature - - Respiratory Rate - - Oxygen Saturation - - Inhaled Oxygen Concentration - - Weight 81.6 kg (180 lb) 01/14/2025 10:15 AM EDT Height 162.6 cm (5' 4 ) 01/14/2025 10:15 AM EDT Body Mass Index 30.9 01/14/2025 10:15 AM EDT Plan of Treatment Health Maintenance Due Date Last Done Comments Hepatitis C Virus Screening 1970 HIV Screening 06/24/1983 DTaP/Tdap/Td Vaccines (1 - Tdap) 1989 Hepatitis B Vaccines (1 of 3 - 19+ 3-dose series) 06/14 Pap Smear (Ages 21-65) 06/24/1991 Mammogram 2010 Colonoscopy 06/24/2015 Pneumococcal Vaccines 50+ (1 of 1 - PCV) 2020 Zoster (Shingles) Vaccine (1 of 2) 2020 Influenza Vaccine 11/14/2024 COVID-19 Vaccine ( - 2023- season) 2024 RSV Vaccine 50 years and old er and Patients (1 - 1-dose 75+ series) 2045 Procedures Procedure Name Priority Date/Time Associated Diagnosis Comments CVEMP & PURE TONE AIR Routine 01/14/2025 10:00 AM EDT Dizziness and giddiness Sensory hearing loss, bilateral BASIC VESTIBULAR & VHIT Routine 01/14/2025 10:00 AM EDT Dizziness and giddiness Sensory hearing loss, bilateral GENERAL SLEEP STUDY Routine 12/30/2024 1 :08 PM EDT Sleep apnea, unspecified type US ABDOMEN-COMPLETE Routine 11/20/2024 8 :37 AM EDT Dyspepsia from Last 3 Months Results * BASIC VESTIBULAR & VHIT (01/14/2025 10:00 AM EDT) Narrative Caroline Rodgers Au.D - 01/14/2025 10:00 AM EDT Vikash Lao 01/14/2025 10:20 AM HPI: Abbie Coburn is a 54 y.o. female who presents with undiagnosed dizziness. This is an undiagnosed new problem with uncertain prognosis. Abbie c/o brief episodes of feeling motion when she's not moving. She also experiences longer episodes of disequilibrium and feeling like she's drunk. Alleviating factors include sleeping. Denies specific triggers. Symptoms began in September 2024. Around that time she was under a large amount of stress. Denies head injuries, illness, boat travel or migraines. Since onset symptoms have improved in severity but continue to occur almost daily. The longer episodes of disequilibrium tend to occur at night and are less frequent. RESULTS: Test Name Normal Abnormal Notes Spontaneous [x] [] Gaze R / L [x] [] Head Shake [x] [] Smooth Pursuits [x] [] Saccades [x] [] OPK R & L [x] [] Hartland Hallpike Right [x] [] Hartland Hallpike Left [x] [] Supine [x] [] Roll Right [x] [] Roll Left [x] [] Other [] [] IMPRESSION: Normal vestibular exam today us Elias Blake MD AMB ORDERABLE PERFORMABLE Final Result * CVEMP & PURE TONE AIR (01/14/2025 10:00 AM EDT) Narrative Caroline Rodgers Au.D - 01/14/2025 10:00 AM EDT Vikash Lao 01/14/2025 10:16 AM Elias Blake MD AMB ORDERABLE PERFORMABLE Final Result * General sleep study (12/30/2024 1:08 PM EDT) Anatomical Region Laterality Modality Other Narrative 12/30/2024 1:08 PM EDT Bert Rowland MD 12/30/2024 1:09 PM Division of Pulmonary, Critical Care, and Sleep Medicine [address] [place] [address], [address], [place] [address] Patient Name: Abbie Coburn Recording Date: 12/25/2024 Gender: female Height: Date of : 1970 Weight: Referring Physician: DR. WINN Neck Circumference: Interpreting Physician: DR. ROWLAND Body Mass Index: [place] Sleepiness Scale: HOME SLEEP APNEA TEST REPORT ICD-10 CODE: G47.8 TYPE OF SLEEP STUDY DONE: [X] Sleep Study Unattended (CPT CODE 95771) INDICATION: Abbie Coburn has been referred for a home sleep apnea test. The patient's past medical history and medications were reviewed prior to analysis of the study. IMPRESSION: No evidence of significant sleep disordered breathing with an overall Respiratory Event Index (KALLIE) of 4.0 events per hour, Apnea-Hypopnea Index (AHI) of 4.0, and an oxygen saturation graciela of 89%. Mild Primary Snoring Disorder. RECOMMENDATIONS: Attended polysomnography (PSG) should be considered in the presence of persistent symptoms concerning for sleep disordered breathing. The patient should avoid driving and operating heavy machinery during periods of sleepiness. Adequate sleep hygiene with at least 7 hours of sleep each night is recommended. DATA SUMMARY: See attached sheet. RECORDING PROCEDURE AND DEFINITIONS: The study was performed using the Sensopia ApneaLink Air Type III Home Sleep Apnea Test (HSAT) device which provides high-quality signals to provide accurate conclusions. The channel recorded include: Airflow acquired with a nasal pressure sensor. Oxygen saturation (SpO2) was monitored using a pulse oximeter. Thoracic respiratory effort was recorded via proprietary ResVetDC technology using a simple pneumatic technology which has been tested and found comparable in accuracy to RIP technology. The heart rate is derived from the oximeter sensor and the snore signal is derived from the nasal pressure sensor. The device also records body position. The tracing was scored using 3 minute epochs. Data collected using computerized digital techniques and saved. AASM standards were followed for complete manual scoring by a [place] program technician (THA). Sleep study was scored manually using the AASM manual for Scoring of Sleep and Associated Events. Rules, Terminology, and Technical Specifications version 2.6. The VIII.1.A definition of hypopneas was used (>= 4% desaturation from pre-even baseline). The data was reviewed by a board-certified sleep physician and the study was found to be technically adequate for interpretation of sleep disordered breathing. Respiratory Event Index (KALLIE) is the sum of apneas and hypopneas indexed per hour of scorable monitoring time (MT) on home sleep test. Apnea-Hypopnea Index (AHI) is the sum of apneas and hypopneas indexed per hour of total sleep time (TST). The monitoring time (MT) is the total recording time (TRT) minus periods of artifacts and time the patient was awake as determined by body position sensor or respiratory pattern. The KALLIE is considered a surrogate for AHI because HSAT uses MT in place of TST. Degree of sleep disordered breathing may be underestimated in type III HSAT since standard sleep staging channels are not monitored to allow for detection of hypopneas only associated with cortical arousals. Data quality: All channels required good single tracings for greater than 4 hours. AHI and KALLIE ranges: 0-5 respiratory events per hour -normal, 5-15 mild disease, 15-30 moderate disease, greater than 30 severe disease. Bert Rowland MD 12/30/2024 1:08 PM Diplomate, [employer] Board of Internal Medicine (Pulmonary, Critical Care, Sleep Medicine) Procedure Note Bert Rowland MD - 12/30/2024 1:08 PM EDT Images from the original note were not included. Division of Pulmonary, Critical Care, and Sleep Medicine [address] [place] [address], [address], [place] [address] Patient Name: Abbie Coburn Recording Date: 12/25/2024 Gender: female Height: Date of : 1970 Weight: Referring Physician: DR. WINN Neck Circumference: Interpreting Physician: DR. ROWLAND Body Mass Index: [place] Sleepiness Scale: HOME SLEEP APNEA TEST REPORT == ICD-10 CODE: G47.8 TYPE OF SLEEP STUDY DONE: [X] Sleep Study Unattended (CPT CODE 18714) INDICATION: Abbie Coburn has been referred for a home sleep apneatest. The patient's past medical history and medications were reviewedprior to analysis of the study. IMPRESSION: No evidence of significant sleep disordered breathing with an overallRespiratory Event Index (KALLIE) of 4.0 events per hour, Apnea-Hypopnea Index(AHI) of 4.0, and an oxygen saturation graciela of 89%. Mild Primary Snoring Disorder. RECOMMENDATIONS: Attended polysomnography (PSG) should be considered in the presence ofpersistent symptoms concerning for sleep disordered breathing. The patient should avoid driving and operating heavy machinery duringperiods of sleepiness. Adequate sleep hygiene with at least 7 hours of sleep each night isrecommended. DATA SUMMARY: See attached sheet. RECORDING PROCEDURE AND DEFINITIONS: The study was performed using the Sensopia ApneaLink Air Type III Home SleepApnea Test (HSAT) device which provides high-quality signals to provideaccurate conclusions. The channel recorded include: Airflow acquired witha nasal pressure sensor. Oxygen saturation (SpO2) was monitored using apulse oximeter. Thoracic respiratory effort was recorded via proprietaryResMed technology using a simple pneumatic technology which has beentested and found comparable in accuracy to RIP technology. The heart rateis derived from the oximeter sensor and the snore signal is derived fromthe nasal pressure sensor. The device also records body position. Thetracing was scored using 3 minute epochs. Data collected usingcomputerized digital techniques and saved. AASM standards were followedfor complete manual scoring by a [place] program technician (THA). Sleep studywas scored manually using the AASM manual for Scoring of Sleep andAssociated Events. Rules, Terminology, and Technical Specifications version 2.6. The VIII.1.A definition of hypopneas was used (>= 4%desaturation from pre-even baseline). The data was reviewed by [facility]-certified sleep physician and the study was found to be technicallyadequate for interpretation of sleep disordered breathing. RespiratoryEvent Index (KALLIE) is the sum of apneas and hypopneas indexed per hour ofscorable monitoring time (MT) on home sleep test. Apnea-Hypopnea Index(AHI) is the sum of apneas and hypopneas indexed per hour of total sleeptime (TST). The monitoring time (MT) is the total recording time (TRT)minus periods of artifacts and time the patient was awake as determined bybody position sensor or respiratory pattern. The KALLIE is considered asurrogate for AHI because HSAT uses MT in place of TST. Degree of sleepdisordered breathing may be underestimated in type III HSAT since standardsleep staging channels are not monitored to allow for detection ofhypopneas only associated with cortical arousals. Data quality: All channels required good single tracings for greater than4 hours. AHI and KALLIE ranges: 0-5 respiratory events per hour -normal,5-15 mild disease, 15-30 moderate disease, greater than 30 severedisease. Bert Rowland MD 12/30/2024 1:08 PM Diplomate, [employer] Board of Internal Medicine (Pulmonary, Critical Care,Sleep Medicine) us Joshua Winn MD [facility] ORDERABLES Fi nal Result * US Abdomen-Complete ([id number]) (11/20/2024 8:37 AM EDT) Anatomical Region Laterality Modality Abdomen Ultrasound 11/20/2024 8:15 AM EDT 11/20/2024 8:15 AM EDT Impressions 11/25/2024 8:18 AM EDT No acute or significant abnormalities. Electronically signed by: Dontrell Schwartz MD 11/25/2024 08:18 AM EDT Workstation:[email or web address] Thank you for referring your patient to us, Dontrell Schwartz MD [id number] (Electronically Signed - 11/25/2024 08:18) Copy: PATIENT , ELSA LEHMAN [address] [place] [address] Narrative 11/25/2024 8:18 AM EDT EXAMINATION: COMPLETE ABDOMINAL ULTRASOUND CLINICAL INDICATION: Female, 54 years, eval RUQ pain TECHNIQUE: Grayscale ultrasonography of the abdomen was performed. COMPARISON: There are no previous examinations available for comparison. FINDINGS: LIVER: Normal size and echogenicity. No masses seen. GALLBLADDER: Surgically absent BILE DUCTS: Intrahepatic and extrahepatic bile ducts appear normal. Measured near the roberta hepatis, the common bile duct is 0.3 cm RIGHT KIDNEY: Right renal length measurement: 11 cm. Normal in echogenicity and size. No calculus, solid mass or hydronephrosis. LEFT KIDNEY: Left renal length measurement: 10.3 cm. Normal in echogenicity and size. No calculus, solid mass or hydronephrosis. SPLEEN: Normal in echogenicity, with length of by 7.8 cm PANCREAS: The visualized pancreas is normal in size and echogenicity. AORTA AND INFERIOR VENA CAVA: Visualized segments of the aorta and inferior vena cava are normal. ASCITES: None. ADDITIONAL FINDINGS: None. Procedure Note Dontrell Schwartz MD - 11/25/2024 EXAMINATION: COMPLETE ABDOMINAL ULTRASOUND CLINICAL INDICATION: Female, 54 years, eval RUQ pain TECHNIQUE: Grayscale ultrasonography of the abdomen was performed. COMPARISON: There are no previous examinations available for comparison. FINDINGS: LIVER: Normal size and echogenicity. No masses seen. GALLBLADDER: Surgically absent BILE DUCTS: Intrahepatic and extrahepatic bile ducts appear normal.Measured near the roberta hepatis, the common bile duct is 0.3 cm RIGHT KIDNEY: Right renal length measurement: 11 cm. Normal inechogenicity and size. No calculus, solid mass or hydronephrosis. LEFT KIDNEY: Left renal length measurement: 10.3 cm. Normal inechogenicity and size. No calculus, solid mass or hydronephrosis. SPLEEN: Normal in echogenicity, with length of by 7.8 cm PANCREAS: The visualized pancreas is normal in size and echogenicity. AORTA AND INFERIOR VENA CAVA: Visualized segments of the aorta andinferior vena cava are normal. ASCITES: None. ADDITIONAL FINDINGS: None. IMPRESSION: No acute or significant abnormalities. Electronically signed by: Dontrell Schwartz MD 11/25/2024 08:18 AM EDTWorkstation:[id number] Thank you for referring your patient to us, Dontrell Schwartz MD [id number] (Electronically Signed - 11/25/2024 08:18) Copy: PATIENT , ELSA DOMINIK ROSE MD [facility] [address] [place] [address] Tino Leigh MD [facility] ORDERABLES Final Resul t from Last 3 Months Insurance A[employer] PPO A[employer] PPO AET[employer] PPO Care Teams Handbag Frames Inspector Relationship Specialty Start Date End Date Elsa Rose MD PCP - General Family Medicine 11/15/24
--- OUTSIDE RECORDS SUMMARY | 2025-02-20 09:20 | XMS_ITS | Clinical Summary ---
[facility] Address [address] [place] [address] Care Team Providers Care Beef Pluck Trimmer Name Role Phone Eliza Darin BROOKS Primary Care Provider [phone] Allergies Active Allergy Reactions Criticality Noted Date [...] 75 08/25/2022 2:40 PM EDT Temperature 36.1 C (97 F) 08/25/2022 2:40 PM EDT Respiratory Rate 11 [...] (1 o f 2) 2020 COVID-19 Vaccine (3 - 2024-2 6 season) 2024 09/30/2021, 09/09/2021 Influenza Vaccine (#1) 2024 Pneumococcal Vaccine Aged Out No long er eligible based on patient's age to complete this topic RSV Ped < 20 months Aged Out No longe r eligible based on patient's age to complete this topic Care Teams Beef Pluck Trimmer Relationship Specialty Start Date End Date Darin Kay DO [address] [place] [id number] PCP - General Family Medicine 11/02/21
--- OUTSIDE RECORDS SUMMARY | 2025-02-20 09:20 | XMS_ITS ---
Author Name [facility] Organization Unknown History of Medication Use Medication Directions Dispensed Refills Start Date End Date Stat us phentermine 15 MG capsule TAKE 1 CAPSULE (15 MG TOTAL) BY MOUTH ONCE DAILY BEFORE BREAKFAST MAX DAILY AMOUNT: 15 MG 09/18/2024 active rosuvastatin (CRESTOR) 5 MG tablet Take 5 mg by mouth. 09/16/2024 active methylPREDNISolone (MEDROL DOSEPAK) 4 MG tablet 1 PACKET BY MOUTH USE DIRECTED PER INSTRUCTIONS IN PACK 09/11/2024 active meclizine (ANTIVERT) 12.5 MG tablet TAKE 1 TABLET (12.5 MG TOTAL) BY MOUTH 3 (THREE) TIMES A DAY IF NEEDED FOR DIZZINESS. 08/28/2024 active estradiol (VIVELLE-DOT) 0.1 MG/24HR external patch APPLY 1 PATCH BY TRANSDERMAL ROUTE TWICE WEEKLY 08/12/2024 active Multiple Vitamin (MULTIVITAMIN ADULT PO) 0 Refills, Maintenance, 08/11/24 10:34:00 AM EDT, Partial fill upon patient request if the prescription is for a schedule II opioid drug. 08/11/2024 active ascorbic acid (VITAMIN C) 500 MG tablet Take 500 mg by mouth. active cyanocobalamin (VITAMIN B-12) 1000 MCG tablet Take 1,000 mcg by mouth. active fluticasone (FloNASE) 50 mcg/spray nasal spray 1 spray. act lisa hydrOXYzine HCl (ATARAX) 25 MG tablet 1 tablet at bedtime as needed Orally Once a day active ketoconazole (NIZORAL) 2 % shampoo APPLY TO SCALP WHEN SHOWERING. LATHER FOR 5 MINS THEN RINSE active pregabalin (LYRICA) 75 MG capsule Take by mouth. active Probiotic, Lactobacillus, Cap Take 1 capsule by mouth. active Allergies Allergen Reaction Severity Comment Documented Date Source Statu s ERYTHROMYCIN OTHER (SEE COMMENTS) 11/18/2024 [facility] active MORPHINE OTHER (SEE COMMENTS) 11/18/2024 [facility] active SULFAMETHOXAZOLE-TRIME THOPRIM RASH/DERMATITIS 11/18/2024 [facility] active HYDROMORPHONE HIVES 04/13/2022 [facility] active MOLDS & SMUTS ITCHING rhinitis 04/11/2019 [facility] active NITROFURANTOIN UNKNOWN/PATIENT AND FAMILY UNABLE TO DEFINE 12/11/2014 [facility] active Problems Problem Status Onset Date Problem Type Date of Resoluti on Source Dizziness and giddiness active EncounterDiagnosisAct [facility] Sensory hearing loss, bilateral active EncounterDiagnosisAct [facility] Encounters Encounter Type Encounter Reason Primary Diagnosis Location Date Ambulatory [facility] 01/14/2025 Ambulatory Sleep apnea, unspecified Sleep apnea, unspecified [employer] [facility] 12/25/2024 [facility] 08/23/2022 Care Team Organization Name Specialty Phone Email Start Date End Da te [employer] THADISINA Primary Care 11/20/2024 02/12/2025 [employer] TAMIKA THADISINA Primary Care 11/15/2024 [place] [employer] CANDE PIMENTEL Primary Care 03/03/2024 [facility] Darin Kay DO Primary Care 06/21/202211/14
--- OUTSIDE RECORDS SUMMARY | 2025-02-20 09:20 | XMS_ITS | Clinical Summary ---
Author Organization [facility], Address [address] [place] [address] Phone Care Team Providers Care Final Rail Cutter Name Role Phone Unavailable Primary Care Provider [...] 80 02/15/2022 11:09 AM EDT Temperature 36.2 C (97.1 F) 02/15/2022 11:09 AM EDT Respiratory Rate - - Oxygen Saturation - [...] of 1 - PCV) 021 Influenza Vaccine (#1) 2024 Insurance [facility]
--- OUTSIDE RECORDS SUMMARY | 2025-02-20 09:20 | XMS_ITS | Encounter Summary ---
Author Organization [facility] Address [address] [place] [address] Care Team Providers Care Continuous Washer Operator Name Role Phone Judah Ewing Primary Care Provider [phone] Elsa Juarez MD Primary Care Provider Marge vailable Encounter Details Date Type Department Care Team (Late st Contact Info) Description 09/26/2024 Scanned Document [address] [phone] Sleep Medicine, Scan Social History Tobacco Use Types Packs/Day Years Used Date Smoking Tobacco: Never Assessed Comments Unknown Sex and Gender Information Value Date Recorded Sex Assigned at Female 09/26/2024 8:52 AM EDT Legal Sex Female 12:42 PM EDT Gender Identity Female 09/26/2024 8:52 AM EDT Sexual Orientation Choose not to disclose 2024 8:52 AM EDT documented as of this encounter Plan of Treatment Not on file documented as of this encounter Visit Diagnoses Not on filedocumented in this encounter Care Teams Continuous Washer Operator Relationship Specialty Start Date End Date Judah Ewing [address] [place] [address] PCP - General 11/14/24 Elsa Juarez MD PCP - General Family Medicine 11/15/24 documented as of this encounter
--- OUTSIDE RECORDS SUMMARY | 2025-02-20 09:20 | XMS_ITS | Patient Health Record ---
Author Organization [facility] Address [address] [place] [address] Care Team Providers Care Maternal Child Nurse Name Role Phone MIKALA URBINA Unavailable [phone] Allergies Allergen (clinical drug ingredient) Drug/Non Drug Allergy documented on EMR Reaction Allergy Type Onset Date Status azithromycin Azithromycin Unknown Drug Allergy A ctive hydromorphone Dilaudid Unknown Drug Allergy Act lisa nitrofurantoin, macrocrystals / nitrofurantoin, monohydrate Macrobid Unknown Drug Allergy Active morphine Morphine Unknown Drug Allergy Active Reason For Referral No Information Medications Medication SIG (Take, Route, Frequency, Duration) Notes [...] a meal Orally Once a day Active Problems Problem Type SNOMED Code ICD Code Onset Dates Problem Status W/U Status Risk Notes Problem Obesity (292576285) Other obesity (E66.8) Active confirmed Problem BMI 30+ - obesity (781641666) BMI 32.0-32.9,pardeep lt (Z68.32) Active confirmed Plan Of Treatment No Information Insurance Providers Payer Name Payer Address Payer Phone Subscriber Number Group Number Insured Name Patient Relationship to Insured Coverage Start Date Coverage End Date [facility] [address] [place] [address] [phone] [id number] [phone] [id number] Abbie Cardoza Self - patient is the insured Medications Administered Medication Instructions Date of Administration Dosage Notes MICC B12 INJECTION 05/23/2022 [id number] Medical (General) History Medical History History ICD Code weight gain/loss arthritis Surgical History Surgery Date(Month/Year) spinal Fusion Feb 2022 gallbladder 2011 left ovary removal 2011 Hospitalization History Reason Date(Month/Year) pain, numbness on left side November 2021
--- OUTSIDE RECORDS SUMMARY | 2025-02-20 09:20 | XMS_ITS | Clinical Summary ---
Author Organization [facility] Address [address] [place] [address] Phone Care Team Providers Care Mobile Marketing Specialist Name Role Phone Elsa Juarez MD Primary Care Provider Allergies Active Allergy Reactions Criticality Noted Date Comments Amoxicillin GI intolerance 04/11/2019 Azithromycin Nausea And Vomiting 08/02/2016 Erythromycin GI intolerance,Unknown 12/11/2014 Hydromorphone Hallucinations 04/13/2022 Mold Itching 04/11/2019 rhinitis Morphine Hives,Nausea And Vomiting,Rash Medium 12/11 Nitrofurantoin Nausea And Vomiting 2016 Medications ketoconazole (NIZORAL) 2 % shampoo [...] mcg/actuation inhaler Inhale 2 puffs by mouth. 11/22/20 23 Active acetaminophen (TYLENOL) 500 mg tablet Take 1 tablet (500 mg total) by mouth if needed. Active cyanocobalamin (VITAMIN B-12) 1,000 mcg tablet Take 1 tablet (1,000 mcg total) by mouth 1 (one) time each day. Active cholecalcifero l (VITAMIN D-3) 25 mcg (1,000 unit) tablet Take 1 tablet (1,000 Units total) by mouth 1 (one) time each day. Active Zepbound 2.5 mg/0.5 mL solution INJECT 0.5 ML (2.5 MG) UNDER THE SKIN ONCE WEEKLY (0.5ML= 50 UNITS) 2 mL 01/27/20 25 Active cephalexin (KEFTAB) 500 mg tablet Take 1 tablet (500 mg total) by mouth. 01/09/20 25 Active cyclobenzaprin e (FLEXERIL) 5 mg tablet Take 1 tablet (5 mg total) by mouth. at bedtime 09/25/19 25 Active HYDROcodone-ac etaminophen (NORCO) 5-325 mg per tablet 01/29/20 25 Active meloxicam (MOBIC) 15 mg tablet Take 1 tablet (15 mg total) by mouth 1 (one) time each day. 09/25/19 25 Active methylPREDNISo lone (MEDROL DOSPAK) 4 mg tablet 1 PACKET BY MOUTH USE DIRECTED PER INSTRUCTIONS IN PACK 09/12/19 25 Active mupirocin (BACTROBAN) 2 % ointment APPLY THREE TIMES DAILY 01/09/20 25 Active naproxen (NAPROSYN) 500 mg tablet 01/28/20 25 Active traZODone (DESYREL) 100 mg tablet Take 1 tablet (100 mg total) by mouth at bedtime. 01/13/20 25 Active triamcinolone (KENALOG) 0.1 % cream PLEASE SEE ATTACHED FOR DETAILED DIRECTIONS 01/12/20 25 Active tirzepatide, weight loss, (Zepbound) 2.5 mg/0.5 mL solution Inject 2.5 mg under the skin every 7 (seven) days. 2 mL 01/01/20 25 025 Discontinued Active Problems Problem Noted Date Diagnosed Date Nonrheumatic tricuspid valve regurgitation 09/03 Assessment & Plan (09/03/2024 3:06 PM EDT): The patient was noted to have mild insufficiency of the tricuspid valve on her recent echocardiogram. This is likely physiological in nature. Nevertheless, per the ACC guidelines, would recommend for the patient to undergo a follow-up echocardiogram in 3 years. I discussed this with the patient and recommended a follow-up echocardiogram in 3 years. She verbalized understanding about this recommendation. Palpitations 07/14/2024 Assessment & Plan (09/03/2024 3:06 PM EDT): The patient continues to have episodes of palpitations that occur more prominently when going from a sitting to a standing position. Symptoms are associated with dizziness. Recent echocardiogram did not show any significant structural heart disease. Recent Holter monitor did not show any arrhythmias. The symptoms are suggestive of possible POTS versus orthostatic hypotension. She will continue with plans to complete a tilt table study on 09/30/2024. Assessment & Plan (07/18/2024 1:49 PM EDT): [...] lumbar fusion 04/21/2024 Obesity (BMI 30-39.9) 04/21/2024 Assessment & Plan (09/03/2024 3:06 PM EDT): The patient has a history of obesity. She has been evaluated by the bariatric surgery team in the past. She was previously on Zepbound. She has lost weight. Recent comprehensive metabolic panel showed an ALT level of 33 which was flagged by the lab as slightly abnormal (the lab at [facility] has an upper limit of normal for ALT levels of 32). Interestingly, previous hepatic panel done at [facility] in May 2024 showed an ALT of 52 which is within the normal range for the [facility] lab. At this point, we will proceed with a follow-up hepatic panel to reevaluate her ALT levels. Orders: Hepatic function panel; Future Other insomnia 04/21/2024 Fibromyalgia 04/21/2024 Dizziness 12/25/2023 Resolved Problems Problem Noted Date Diagnosed Date Resolved Date Near syncope 07/18/2024 07/18/2024 Other chest pain 07/18/2024 09/03/2024 Assessment & Plan (07/18/2024 1:49 PM EDT): [...] 8.7 mL injection Exercise stress test; Future Encounters Date Type Department Care Team Description 01/28/2025 Telephone Adult Medicine - [place] [address] [place] [address] Elsa Juarez MD 01/28/2025 Telephone Adult Medicine - [place] [address] [place] [address] Elsa Juarez MD 12/31/2024 Telephone Bariatric Surgery - [place] [address] [facility] [address] [place] [phone] Josemanuel Richards MD 12/23/2024 9:30 AM EDT Office Visit Adult Medicine [facility] [address] [place] [address] lEsa Juarez MD Fibromyalgia (Primary Dx); Chronic pain syndrome; Dizziness; Right foot pain; History of torn meniscus of right knee; History of lumbar fusion; Recurrent falls 12/23/[address] [phone] Elsa Juarez MD from Last 3 Months Surgical History Surgery Date Site/Laterality Comments CHOLECYSTECTOMY PROCEDURE:CHOLECYSTECTOMY SPINAL FUSION PROCEDURE:SPINAL FUSION LEFT OOPHORECTOMY PROCEDURE:LEFT OOPHORECTOMY BREAST LUMPECTOMY PROCEDURE:BREAST LUMPECTOMY;COMMENT:2 on right breast, 1 on left breast FOOT FASCIOTOMY 08/25/2022 Right PROCEDURE:FASCIOTOMY FOOT / TOE;COMMENT:Procedure: RIGHT FASCIOTOMY FOOT / TOE; Surgeon: Kaden Manning DPM; Location: [facility]; Service: Podiatry; Laterality: Right; OOPHORECTOMY 11/14/2014 Left PROCEDURE: HISTORICAL OOPHORECTOMY; COMMENT: teratoma CHOLECYSTECTOMY 11/14/2014 PROCEDURE: HISTORICAL CHOLECYSTECTOMY BREAST LUMPECTOMY L 2003,2006. R 2000 PROCEDURE: HISTORICAL BREAST LUMPECTOMY; COMMENT: normal OTHER SURGICAL HISTORY 03/01/2022 PROCEDURE: [place] ARTHRODESIS POSTERIOR INTERBODY 1 NTRSPC LUMBAR; COMMENT: L4-5, L5-S1 OLDr. Deb DENNIS Medical History Medical History Date Comments Asthma [...] Sign Reading Time Taken Comments Blood Pressure 119/76 12/23/2024 9:29 AM EDT Pulse 97 12/23/2024 9:29 AM EDT Temperature 36.3 C (97.3 F) 12/23/2024 9:29 AM EDT Respiratory Rate 16 12/23/2024 9:29 AM EDT Oxygen Saturation 96% 09/03/2024 1:40 PM EDT Inhaled Oxygen Concentration - - Weight 82.6 kg (182 lb) 12/23/2024 9:29 AM EDT Height 164 cm (5' 4.57 ) 12/23/2024 9:29 AM EDT Body Mass Index 30.69 12/23/2024 9:29 AM EDT Plan of Treatment Upcoming Encounters Date Type Department Care Team (Late st Contact Info) Description 06/16/2025 4:30 PM EST Office Visit Bariatric Surgery - [place] [address] [facility] [address] [place] [address] Josemanuel Richards MD [address] [place] [phone] 08/26/2025 8:40 AM EDT Consult Gastroenterology - [address] [place] [address] [address] [facility] [address] [place] [address] Karla Hooper NP [address] [facility] [address] [place] [address] 10/08/2025 3:45 PM EDT Office Visit Adult Medicine - [place] [address] [place] [phone] Elsa Juarez MD [address] [place] [address] 12/15/2025 8:30 AM EDT Office Visit Adult Medicine - [place] [address] [place] [phone] Elsa Juarez MD [facility] [place] [address] Health Maintenance Due Date Last Done Comments Hepatitis B Vaccines (1 of 3 - 19+ 3-dose series) 1989 Pneumococcal Vaccine: 50+ Years (1 of 1 - PCV) 2020 HIV Screening 03/24/2022 Social Influencers of Health Screening 03/24/2022 Depression Screening 04/16/2024 COVID-19 Vaccine (3 - 2024- season) 2024 09/30/2021, 09/09/2021 Influenza Vaccine (#1) 2024 Cervical Cancer Screening: Pap Smear 04/11/2025 04/11/2022 Breast Cancer Screening 07/01/2025 07/02/2023, 02/15 Zoster Vaccines (1 of 2) 09/23/2025 Pos tponed from 2020 (Patient Refused) DTaP,Tdap,and Td Vaccines (1 - Tdap) 10/01/2025 Postponed from 1989 (Patient Refused) Colorectal Cancer Screening: FIT-DNA (Cologuard) 02/07/2026 02/07/2023 Cholesterol Screening (Lipid Panel) 09/19/2029 09/19/2024, 05/20/2024, 07/24/2023, Additional history exists RSV Immunization Adult Patients (1 - 1-dose 75+ series) 2045 Hepatitis C Screening Completed 07/24/2023 HIB Vaccines [...] 20 months Aged Out No longer eligible based on patient's age to complete this topic Varicella Vaccines Aged Out No longer eligible based on patient's age to complete this topic Procedures Procedure Name Priority Date/Time Associated Diagnosis Comments EXTERNAL ULTRASOUND REPORT 11/20/2024 LIPID PANEL WITH REFLEX TO DIRECT LDL Routine 09/19/2024 10:08 AM EDT Over weight HEPATITIS C SCREENING Routine 07/24/2023 MAMMOGRAPHY Routine 07/02/2023 FIT-DNA Routine 02/07/2023 PAP SMEAR Routine 04/11/2022 from Last 3 Months or Most Recently Relevant to Health Maintenance Results * External Ultrasound Report (11/20/2024) Anatomical Region Laterality Modality Ultrasound us Provider [facility] US PROCEDURES Final Result * (ABNORMAL) Lipid panel with reflex to direct LDL (09/19/2024 10:08 AM EDT) Cholesterol 185 0 - 200 mg/dL LAB CHEMISTRY METHOD 09/19/2024 3:47 PM EDT [facility] Triglycerides 130 0 - 150 mg/dL LAB CHEMISTRY METHOD 09/19/2024 3:47 PM EDT [facility] HDL 58 >=40 mg/dL LAB CHEMISTRY METHOD 09/19/2024 3:47 PM EDT [facility] LDL Calculated 101(H) 0 - 100 mg/dL LAB CHEMISTRY METHOD 09/19/2024 3:47 PM EDT [facility] VLDL Cholesterol Wang 26 mg/dL LAB CHEMISTRY METHOD 09/19/2024 3:47 PM EDT [facility] Non HDL Chol. (LDL+VLDL) 127 <145 mg/dL LAB CHEMISTRY METHOD 09/19/2024 3:47 PM EDT [facility] Chol/HDL Ratio 3.2 0.0 - 4.4 LAB CHEMISTRY METHOD 09/19/2024 3:47 PM EDT [facility] Blood Venous blood specimen / Unknown Venipuncture / Unknown 09/19/2024 10:08 AM EDT 09/19/2024 10:08 AM EDT Josemanuel Richards MD LAB BLOOD ORDERABLES Final R esult [facility] [address] [place] [address], * Hepatitis C Screening (07/24/2023) [facility] Hepatitis C Screening Abstrated Historical Provider HEALTH MAINTENANCE Final Result * Mammography (07/02/2023) [facility] Mammogram abstract [facility] / Anatomical Region Laterality Modality Other Historical Provider HEALTH MAINTENANCE Final Result * FIT-DNA (Cologuard) (02/07/2023) [facility] Colorectal Cancer Screening: FIT-DNA (Cologuard) Negative, Abstracted Historical Provider HEALTH MAINTENANCE Final Result * Pap Smear (04/11/2022) [facility] Pap smear No Interpretatio n, Abstrated Historical Provider HEALTH MAINTENANCE Final Result from Last 3 Months or Most Recently Relevant to Health Maintenance Insurance [employer] Care Teams Mobile Marketing Specialist Relationship Specialty Start Date End Date Elsa Juarez MD [address] [place] [address] [facility] [place] [id number] PCP - General Internal Medicine 05/15/24
== END 2025-02-20 08:43 | disposition home or self-care (01) ==
LOC: HO.HOSX 08:42
PROVIDERS: Visit Provider Physician Assistant
DX: M43.16 Spondylolisthesis, lumbar region (principal)
CPT/HCPCS: 72110

== ENCOUNTER 2025-02-20 09:00 | Outpatient (AMB) | payer OTHER, SELFPAY ==
--- NOTE | 2025-02-20 09:01 | A.SPINEOV_ITS ---
Vital Signs 02/20/25 09:19 Height 5 ft 4 in Weight 180 lb BMI 30.9 Intake Visit Reasons: LBP radiating to the front Intake Note: Mrs. Coburn is here today c/o right sided low back pain that radiates to the hips and groin. Provider Relations Manager Required: No Allergies erythromycin base Allergy (Severe, Verified 02/20/25 09:19) Anaphylaxis morphine Allergy (Severe, Verified 02/20/25 09:19) Anaphylaxis nitrofurantoin (From Macrobid) Allergy (Severe, Verified 02/20/25 09:19) Anaphylaxis Physical Exam Vital Signs: BMI result Body Mass Index 30.9 Assessment & Plan Assessment & Plan (1) Back pain: Code(s): M54.9 - Dorsalgia, unspecified Category: Medical Plan Mrs Coburn is here in follow up. This is a patient with a previous history of L4-S1 fusion done by Dr. Boyd a few years ago. Patient reports that about 4- 5 days ago she had onset of severe right low back pain, few days later started radiating around to her anterior hip. Patient reports a history of knee surgery a few weeks ago, has been walking somewhat awkwardly on it, but does not recall any specific time where she had any issues that she feel might have set this off. No tingling or numbness going down the leg. The patient has been on Advil and Tylenol more less around the clock. No other conservative treatment tried so far. On exam patient is uncomfortable, has a hard time getting up on the examining table. Motor examination reveals full strength. The patient's knee reflex was not tested secondary to recent surgery. Some pain with internal and external rotation of the right leg. X-rays were done, these show stable positioning of the hardware all in good position. I think what the patient might be dealing with his some kind of soft tissue strain because she can put her hands on the area of her low back and make the pain worse. It does not sound like a herniated disc as it is not radiating down the leg. I gave her a prescription for methocarbamol and PT and told her to call me back in a few weeks if it is not better and we could consider getting an MRI. Total amount of time spent in this visit was 20 minutes in discussion of symptoms, x-ray imaging results and subsequent plan of care Jh Boyd MD,PhD [facility] Orders: Orders XR lumbar spine 4V min Today M43.16 - Spondylolisthesis, lumbar region PT Evaluation and Treatment Today M54.9 - Dorsalgia, unspecified Medications: New methocarbamol 500 mg PO Q6H 30 tabs 0RF pain and spasm Coding Level of Care Code Est Pt Level 3 (74656) Diagnoses Back pain M54.9
[2025-02-20 09:19] VITALS: BMI 30.9
== END 2025-02-20 09:48 | disposition home or self-care (01) ==
LOC: HO.HNS 09:01
PROVIDERS: PCP Student in an Organized Health Care Education/Training Program; Visit Provider Physician Assistant
DX: M54.9 Dorsalgia, unspecified (principal)
CPT/HCPCS: 99213

== ENCOUNTER → 2025-02-20 09:04 | Outpatient (BNV) | payer OTHER, SELFPAY | PROVIDERS: Visit Provider Radiology Diagnostic Radiology | DX: M43.16 Spondylolisthesis, lumbar region (principal) | CPT/HCPCS: 72110 ==